=== PATIENT | female | born 1995 | race Caucasian/White ===

== ENCOUNTER 2025-07-15 13:50 | Emergency (ER) | payer OTHER, SELFPAY ==
--- NOTE | ~2025-07-15 | XR_ITS ---
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 Findings: No acute fracture or malalignment. No significant degenerative changes. Soft tissues unremarkable. Impression: No acute fracture or malalignment. Reviewed, dictated and finalized at location P. CULTURE TECHNICIAN Impression: No acute fracture or malalignment.
[2025-07-15 13:55] VITALS: BP 125/72; PULSE 113; RESP 18; TEMP 37.2; O2SAT 99
--- NOTE | 2025-07-15 14:11 | ED_ITS ---
HPI - Extremity Problem General Chief complaint: Extremity Problem,Nontraumatic Stated complaint: Left Knee Pain Time Seen by Provider: 07/15/25 14:07 Source: patient, RN notes reviewed and old records reviewed Mode of arrival: ambulatory Limitations: no limitations History of Present Illness HPI Narrative: 29 year old female who presents to express care with complaints of pain to her left knee posterior and lateral aspect of her knee with pain radiating down leg with no known injury. Patient does have limping gait noted but is able to have full weight bearing to her left knee. Patient reports that she was diagnosed with [place] Ch[place] in 2016 and she previous lived in [place] and now lives in [place] and sees Dr De La Rosa for her neurologist.Patient reports that she awoke yesterday with her discomfort and it was hard to straighten her leg. She reports that she has taken Tylenol arthritis, warm bath and has used Lidocaine patch to her knee without relief. MD Complaint: other (left knee pain) Onset (ago): day(s) (2) Location: knee Severity scale (1-10): 6 Related Data Home Medications ?Medication ?Instructions ?Recorded ?Confirmed ?Last Taken ?Type buspirone .ROUTE 07/15/25 Unknown His tory trazodone 50 mg tablet mg 07/15/25 Unknown History venlafaxine 75 mg capsule,extended mg PO 07/15/25 Unk nown History release 24 hr Allergies Allergy/AdvReac Type Severity Reaction Status Date / Time No Known Allergies Allergy Verified 07/15/25 14:04 Review of Systems Review of Systems: CONSTITUTIONAL: Denies fever, chills, or sweats. EYES: Denies visual changes, redness, or discharge. ENT: Denies rhinorrhea, congestion, sore throat, or otalgia. CARDIOVASCULAR: Denies chest pain, palpitations, or edema. RESPIRATORY: Denies cough or dyspnea. GASTROINTESTINAL: Denies abdominal pain, nausea, vomiting, or diarrhea. GENITOURINARY: Denies dysuria or hematuria. SKIN: Denies rash or itching. MUSCULOSKELETAL: Denies back pain,positive for left knee pain lateral and posterior aspect of knee, or myalgia. NEUROLOGIC: Denies headache, numbness, or weakness. PSYCHIATRIC: Denies anxiety or depression. All systems reviewed & are unremarkable except as noted in HPI and below PMFSH Past Medical History Medical History (Updated 07/17/25 @ 08:03 by Vilma Damon APRN) ADHD (attention deficit hyperactivity disorder) Anxiety and depression Kim chorea Surgical History Surgical History (Updated 07/17/25 @ 08:03 by Vilma Damon APRN) History of tonsillectomy and adenoidectomy Social History Social History (Updated 07/17/25 @ 08:06 by Vilma Damon APRN) Smoking status: Current every day smoker Tobacco type: e-cigarettes/vaping Alcohol intake: current Alcohol use details: social Substance use type: does not use Gender identity (if verbalized by the patient): Female Comments At time of signature, agree with nursing past medical, surgical, social and family history. There is no relevant family history pertinent to the presenting complaint Exam Narrative: GENERAL: Well-appearing, well-nourished, and in no acute distress. HEAD: Normocephalic, atraumatic. EYES: PERRLA and EOMI. ENT: Nares clear, no rhinorrhea or epistaxis. Mucous membranes moist. NECK: Supple.no lymphadenopathy CHEST: Clear to auscultation. No respiratory distress.no cough noted SAO2 99% on room air HEART: Regular rate and rhythm. No murmur heard. Normal peripheral pulses. ABDOMEN: Soft, nontender, nondistended, normal active bowel sounds. EXTREMITIES: Normal range of motion. No edema.Pain reported to posterior and lateral left knee with ROM intact but with discomfort, denies any tingling or numbness to left leg, pedal pulse present of strong quality to left leg SKIN: Warm, dry, no rash. NEURO: No focal deficits. Alert and oriented x3. Course Course Emergency Course: Patient is aware of diagnosis, understands and agrees to treatment plan.? Anticipatory guidance given.? Patient agrees to follow-up as directed and is aware of reasons to seek care at the emergency department. Portions of this record may have been created with voice recognition software Level of Care: Express Care Visit Vital Signs Vital signs: Vital Signs Temperature 37.2 C 07/15/25 13:55 Pulse Rate 113 H 07/15/25 13:55 Respiratory Rate 18 07/15/25 13:55 Blood Pressure 125/72 07/15/25 13:55 Pulse Oximetry 99 07/15/25 13:55 Oxygen Delivery Room Air 07/15/25 13:55 Temperature 37.2 C 07/15/25 13:55 Pulse Rate 113 H 07/15/25 13:55 Respiratory Rate 18 07/15/25 13:55 Blood Pressure 125/72 07/15/25 13:55 Pulse Oximetry 99 07/15/25 13:55 Oxygen Delivery Room Air 07/15/25 13:55 Reviewed MDM - Extremity (Nontraumatic) Differential Diagnosis Differential diagnosis: Likely other (left knee pain, muscle strain left knee, internal knee derangement, arthritis) Medical Records Attestation: I reviewed the patient's medical records. Imaging Data Attestation: I personally reviewed and interpreted this imaging study as follows: My impression: no acute fracture or malalignment, no soft tissue swelling Radiologist's impression: [place] [id number] XRay Report Signed Patient: Ana Mace : 1995 MR#: [id number] Age: 29 Acct:[id number] Loc: [facility] ADM Date: 07/15/[address]: Ordering Physician: Vilma Damon APRN Date of Service: 07/15/25 Procedure(s): XR knee LT 3V Accession Number(s): [id number] cc: Vilma Damon APRN~ EXAMINATION: XR knee LT 3V, 07/15/2025 14:20 [employer] HISTORY: pain to lateral and posterior knee,NKI COMPARISON: No comparisons available. Findings: No acute fracture or malalignment. No significant degenerative changes. Soft tissues unremarkable. Impression: No acute fracture or malalignment. Reviewed, dictated and finalized at location [facility] [employer] Please be advised this is a medical document. It is intended for [id number] communication. It is written in medical language and may contain unfamiliar abbreviations or verbiage. Medical documents are intended to carry relevant information, facts as evident, and the clinical opinion of the practitioner at the time of the encounter. This report may have been done utilizing a voice recognition system. Attempts have been made to correct errors. However, there may be uncorrected grammatical, spelling, and recognition errors present. The file time of this note does not necessarily represent the time of service. Dictated By: Alfred Canchola MD 07/15/25 1430 Signed By: <Electronically signed by Alfred Canchola MD in OV> Critical Care Time Critical Care Time Critical Care Time: No Discharge Plan Discharge Clinical Impression: Knee pain, left Patient Disposition: Home Condition: Stable Instructions: Antibiotic Form, Muscle Strain (ED) Additional Instructions: Tylenol for lesser pain Ibuprofen regularly for the next 2-3 days for the inflammation may use neoprene sleeve to left knee for support and comfort measures Follow-up with orthopedic surgeon if no improvement Follow-up with PCP if further problems or concerns Ice to the area 20-30 minutes 4-6 times a day Elevate above heart If your symptoms persist, change or worsen significantly before you can contact your personal physician then please, without delay, go to the emergency department for further evaluation. Follow-up with PCP in 7-10 days or sooner if needed Patient Language: German Prescriptions: No Action venlafaxine 75 mg capsule,extended release 24hr PO trazodone 50 mg tablet buspirone .ROUTE Follow-up/Referrals: PHYSICIAN NOT ON STAFF,NONSTAFF [Primary Care Provider] Time of Disposition: 14:41 Quality [place] Coma Scale Eyes: Open Verbal: Oriented and Alert Motor: Follows Commands [place] Coma Total Score: 15
--- OUTSIDE RECORDS SUMMARY | 2025-07-15 14:55 | XMS_ITS | Clinical Summary ---
Author Organization [facility] Address [address] [place] [address] Phone Care Team Providers Care Director Risk Name Role Phone Jacob Hinton MD Unavailable Magdy De La Rosa MD Unavailable [phone] Autumn Crawford DO Primary Care Provider [phone] Allergies Active Allergy Reactions Criticality Noted Date Comments Other-Environmental Allergen (Not Found In Search) Unknown 04/30/2024 Band-aid adhesive Medications levonorgestrel (Mirena, 52 MG,) 20 MCG/DAY IUD 1 Intra Uterine Device by Intrauterine route once. Active traZODone (DESYREL) 50 MG Tablet Take 50 mg by mouth nightly. Active venlafaxine (EFFEXOR) 75 MG Tablet Take 75 mg by mouth nightly. Active busPIRone (BUSPAR) 5 MG Tablet 5 Active methylPREDNISol one (MEDROL DOSPACK) 4 MG Tablet Therapy Pack See product package insert for dosing schedule 21 Tablet 5 Active Active Problems Problem Noted Date Diagnosed Date GREYSON (obstructive sleep apnea) 05/27/2024 Encounters Date Type Department Care Team Description 06/05/2025 5:49 PM CDT - 06/06/2025 2:54 AM CDT Emergency [facility] [address] [place] [address] Panchito Hart MD Pleurisy Discharge Disposition: Discharged to home or Selfcare 06/05/2025 Travel 06/04/2025 Results Follow-Up [facility] Neurology [facility] [address] [place] [address] Magdy De La Rosa MD [facility] 05/29/2025 Travel 04/28/2025 2:45 PM CDT Office Visit [facility] Neurology [facility] [address] [place] [address] Magdy De La Rosa MD Dale's disease (HCC) (Primary Dx) Discharge Disposition: Discharged to home or Selfcare 04/27/2025 Travel from Last 3 Months Family History Medical History Relation Name Comments Diabetes Father Hypertension Father Cancer Maternal Grandmother jenifer Mother Cancer Paternal Grandmother Relation Name Status Comments Father Alive Maternal Grandmother Mother Paternal Grandmother Social History Tobacco Use Types Packs/Day Years Used Date Smoking Tobacco: Every Day Cigarettes Smokeless Tobacco: Never Tobacco Cessation:Ready to Q uit: No; Counseling Given: Yes Alcohol Use Standard Drinks/Week Comments Yes 0 (1 standard drink = 0.6 oz pur e alcohol) Comments No Sex and Gender Information Value Date Recorded Sex Assigned at Female 10/21/2024 10:28 AM [employer] Legal Sex Female 11:51 PM CDT Gender Identity Other 10/21/2024 10:28 AM [employer] Sexual Orientation Something else 10/21/2024 10 :28 AM [employer] Last Filed Vital Signs Vital Sign Reading Time Taken Comments Blood Pressure 115/78 06/06/2025 2:45 AM CDT Pulse 92 06/06/2025 2:53 AM CDT Temperature 36.9 C (98.4 F) 06/05/2025 5:50 PM CDT Respiratory Rate 18 06/06/2025 2:53 AM CDT Oxygen Saturation 98% 06/06/2025 2:53 AM CDT Inhaled Oxygen Concentration - - Weight 77.1 kg (170 lb) 06/05/2025 5:50 PM CDT Height 154.9 cm (5' 1) 06/05/2025 5:50 PM CDT Body Mass Index 32.12 06/05/2025 5:50 PM CDT Plan of Treatment Upcoming Encounters Date Type Department Care Team (Late st Contact Info) Description 08/03/2025 2:45 PM [employer] Office Visit [facility] - [facility] [address] [place] [address] Magdy De La Rosa MD [address] [place] [address] Health Maintenance Due Date Last Done Comments Hepatitis C Virus (HCV) Screening 1996 TdaP Immunization 1996 Hepatitis B Immunization (1 of 3 - 19+ 3-dose series) 2015 Pneumococcal Immunization Combined (1 of 2 - PCV) 2015 Pap Smear 2017 Medicare Initial AWV G0438 03/03/2023 Human Papillomavirus (HPV) Immunization (1 - 3-dose SCDM series) 2023 SARS-COV-2 Immunization (3 - season) 2025 05/12/2021, 04/06/2021 Respiratory Syncytial Virus (RSV) Immunization (Adult) (1 - 1-dose 75+ series) 2071 Influenza Immunization Completed , 06/26/2018, 07/28/2016, Additional history exists Meningococcal Immunization (ACWY) Aged Out No longer eligible based on patient's age to complete this topic Rotavirus Immunization Aged Out No lo nger eligible based on patient's age to complete this topic Procedures Procedure Name Priority Date/Time Associated Diagnosis Comments CT ANGIO CHEST W/WO CONTRAST WITH PP (POST PROCESSING) Stat with Interpretation 06/05/2025 11:23 PM CDT D-DIMER STAT 06/05/2025 9:[address] RENAL STONE STUDY (ABDOMEN AND PELVIS W/O CONTRAST) Stat with Interpretation 06/05/2025 8:11 PM CDT URINALYSIS REFLEX IF INDICATED BY ABNORMAL RESULTS STAT 06/05/2025 7:37 PM CDT UR TEST QUAL STAT 06/05/2025 7:37 PM CDT XR CHEST SINGLE VIEW PORTABLE STAT 06/05/2025 6:44 PM CDT CBC WITH AUTO DIFFERENTIAL STAT 06/05/2025 6:36 PM CDT CMP (COMPREHENSIVE METABOLIC PANEL) STAT 06/05/2025 6:36 PM CDT LIPASE STAT 06/05/2025 6:36 PM CDT COMPLETE BLOOD COUNT (CBC) WITH DIFF STAT 06/05/2025 6:36 PM CDT RSV,SARS-COV-2,INF LUENZA A&B BY PCR STAT 06/05/2025 5:[address] - ABDOMEN/PELVIS 06/05/2025 12:00 AM CDT CTA GENERIC 06/05/2025 12:00 AM CDT [facility] 05/29/2025 11:53 AM CDT Jenifer's disease (HCC) from Last 3 Months Results * CT ANGIO CHEST W/WO CONTRAST WITH PP (POST PROCESSING) (06/05/2025 11:23 PM CDT) Anatomical Region Laterality Modality vascular N/A Computed Tomogra phy 06/05/2025 11:2 3 PM CDT Impressions 06/06/2025 6:45 AM CDT IMPRESSION: 1. No pulmonary embolus identified. 2. Multiple abnormalities as above. The preliminary report and any related communication were provided by [facility] After Hours service, as documented in the medical record. Narrative 06/06/2025 6:45 AM CDT DICTATING PHYSICIAN: Simone Engle EXAM: CT CHEST ANGIOGRAPHY WITH CONTRAST AND 3-D POSTPROCESSING EXAM DATE: 06/05/2025 11:23 PM COMPARISON: None. CLINICAL HISTORY: STAT WITH INTERPRETATION CTA ordered for PE. Ordering clinician listed reason for examination Pulmonary embolism (PE) suspected, high prob, c/o middle back pain and nonproductive cough x 2 days. HX: Smoker, Jenifer's chorea REFERRING PROVIDER: PANCHITO HART FINDINGS: Intravenous contrast administered. MIP 3-D postprocessed images provided under concurrent supervision. CT dose reduction techniques used. Exam performed using one or more of the following dose reduction techniques: Automated exposure control, adjustment of the mA and/or kV according to patient size, and/or use of iterative reconstruction. Lungs: Motion artifact. Findings of pulmonary interstitial edema. Multiple nodules and consolidations in the basilar lower lobes. Correlate for superimposed pneumonia. Follow-up to document resolution. Pleurae: No effusion. Mediastinum: No adenopathy. Anterior mediastinal soft tissue suggestive of incomplete thymic gland involution. Thyroid Gland: No nodule identified. Thoracic Aorta: No aneurysm. Pulmonary Arteries: Motion artifact. No central, lobar, segmental, or definite subsegmental filling defect. Esophagus: Unremarkable. Heart: Normal size. No pericardial effusion. Chest Wall: No axillary adenopathy. Abdomen: Nonspecific hyperattenuating mass in the right hepatic lobe on image 323 possibly hemangioma. Correlate with liver protocol MR or CT to better characterize. No comparison imaging. Skeleton: No suspicious bone lesion identified. Procedure Note Simone Engle MD - 06/06/2025 DICTATING PHYSICIAN: Simone Engle EXAM: CT CHEST ANGIOGRAPHY WITH CONTRAST AND 3-D POSTPROCESSING EXAM DATE: 06/05/2025 11:23 PM COMPARISON: None. CLINICAL HISTORY: STAT WITH INTERPRETATION CTA ordered for PE. Orderingclinician listed reason for examination Pulmonary embolism (PE)suspected, high prob, c/o middle back pain and nonproductive cough x 2days. HX: Smoker, Dale's chorea REFERRING PROVIDER: PANCHITO HART FINDINGS: Intravenous contrast administered. MIP 3-D postprocessedimages provided under concurrent supervision. CT dose reductiontechniques used. Exam performed using one or more of the following dosereduction techniques: Automated exposure control, adjustment of the mAand/or kV according to patient size, and/or use of iterativereconstruction. Lungs: Motion artifact. Findings of pulmonary interstitial edema.Multiple nodules and consolidations in the basilar lower lobes. Correlatefor superimposed pneumonia. Follow-up to document resolution. Pleurae: No effusion. Mediastinum: No adenopathy. Anterior mediastinal soft tissue suggestiveof incomplete thymic gland involution. Thyroid Gland: No nodule identified. Thoracic Aorta: No aneurysm. Pulmonary Arteries: Motion artifact. No central, lobar, segmental, ordefinite subsegmental filling defect. Esophagus: Unremarkable. Heart: Normal size. No pericardial effusion. Chest Wall: No axillary adenopathy. Abdomen: Nonspecific hyperattenuating mass in the right hepatic lobe onimage 323 possibly hemangioma. Correlate with liver protocol MR or CT tobetter characterize. No comparison imaging. Skeleton: No suspicious bone lesion identified. IMPRESSION: 1. No pulmonary embolus identified. 2. Multiple abnormalities as above. The preliminary report and any related communication were provided by[facility] After Hours service, as documented in the medical record. Panchito Hart MD IMG CT ORDERABLES Final Result * (ABNORMAL) D-DIMER [id number] (06/05/2025 9:07 PM CDT) D DIMER 3.91(H) <0.50 mcg/mL FEU 06/05/2025 9:50 PM CDT [facility] Blood Venipuncture / Unknown 06/05/2025 9:07 PM CDT 06/05/2025 9:28 PM CDT Narrative [facility] - 06/05/2025 9:50 PM CDT The FDA has approved this method to exclude the diagnosis of DVT and/or PE at the cutoff value of <0.50 mcg/mL FEU. Panchito Hart MD HEMATOLOGY ORDERABLES F inal Result [facility] [address] [place] [address] * CT RENAL STONE STUDY (ABDOMEN AND PELVIS W/O CONTRAST) (06/05/2025 8:11 PM CDT) Anatomical Region Laterality Modality Abdomen N/A Computed Tomogra phy 06/05/2025 8:11 PM CDT Impressions 06/05/2025 9:15 PM CDT IMPRESSION: 1. No renal or ureteral calculus. No acute abnormality in the abdomen or pelvis. 2. Partially visualized pleural-based circumscribed opacities in the lower lobes bilaterally, greater on the right. Differential is broad and findings could be due to aspiration, infection, ischemia among other etiologies. Would recommend clinical correlation for further characterization as well as further evaluation with CT chest with contrast given the rounded appearance. 3. Other chronic findings as above. The preliminary report and any related communication were provided by [facility] After Hours service, as documented in the medical record. Narrative 06/05/2025 9:15 PM CDT DICTATING PHYSICIAN: Atilio Santana D.O. DATE: 06/05/2025 8:11 PM EXAM: CT RENAL STONE STUDY (ABDOMEN AND PELVIS W/O CONTRAST) COMPARISON: None. CLINICAL HISTORY: Flank pain, kidney stone suspected, Bilat lower back/flank pain since sunday. Rt side worse. FINDINGS: Unenhanced CT of the abdomen and pelvis obtained using renal calculus protocol. Low-dose protocol utilized. Suboptimal evaluation of the solid organs, vasculature and bowel due to lack of IV and oral contrast. Radiation dose reduction technique(s) were used. Radiation dose reduction techniques were employed. CTDIvol: 8.9 mGy. DLP: 481 mGy-cm. ABDOMEN: Liver: Normal size and homogeneous density. Gallbladder: Tiny calcified gallstones versus biliary sludge. Consider ultrasound. Spleen: Normal size and homogeneous density. Adrenals: No mass. Pancreas: No peripancreatic fat stranding. Aorta/IVC: Normal size. Kidneys/Ureters/Bladder: No obstructing renal or ureteral calculus. No exophytic mass or hydronephrosis. Cortical scarring in the upper pole of the left kidney could be chronic sequela of prior infection PELVIS: Reproductive organs: No pelvic mass. Intrauterine device within the uterus. Simple appearing cyst in the right ovary measuring up to 3.7 cm probable physiologic cyst or follicle the left ovary measuring 1.9 cm. No follow-up is necessary based on their sizes and the patient's age. Bowel: No dilation. The appendix is not definitely demonstrated however there are no inflammatory changes in the expected location of the appendix. Mesentery: No adenopathy. Peritoneum: No free fluid. Lower chest: Partially visualized pleural-based circumscribed opacities in the lower lobes bilaterally, greater on the right. Left lower lobe solid nodule measuring 5 mm (series 301, image 19). Bones/Body wall: No destructive lesion. No significant abnormality. . Procedure Note Atilio Santana, DO - 06/05/2025 DICTATING PHYSICIAN: Atilio Santana D.O. DATE: 06/05/2025 8:11 PM EXAM: CT RENAL STONE STUDY (ABDOMEN AND PELVIS W/O CONTRAST) COMPARISON: None. CLINICAL HISTORY: Flank pain, kidney stone suspected, Bilat lowerback/flank pain since sunday. Rt side worse. FINDINGS: Unenhanced CT of the abdomen and pelvis obtained using renalcalculus protocol. Low-dose protocol utilized. Suboptimal evaluation ofthe solid organs, vasculature and bowel due to lack of IV and oralcontrast. Radiation dose reduction technique(s) were used. Radiation dosereduction techniques were employed. CTDIvol: 8.9 mGy. DLP: 481 mGy-cm. ABDOMEN: Liver: Normal size and homogeneous density. Gallbladder: Tiny calcified gallstones versus biliary sludge. Considerultrasound. Spleen: Normal size and homogeneous density. Adrenals: No mass. Pancreas: No peripancreatic fat stranding. Aorta/IVC: Normal size. Kidneys/Ureters/Bladder: No obstructing renal or ureteral calculus. Noexophytic mass or hydronephrosis. Cortical scarring in the upper pole ofthe left kidney could be chronic sequela of prior infection PELVIS: Reproductive organs: No pelvic mass. Intrauterine device within theuterus. Simple appearing cyst in the right ovary measuring up to 3.7 cmprobable physiologic cyst or follicle the left ovary measuring 1.9 cm. Nofollow-up is necessary based on their sizes and the patient's age. Bowel: No dilation. The appendix is not definitely demonstrated howeverthere are no inflammatory changes in the expected location of theappendix. Mesentery: No adenopathy. Peritoneum: No free fluid. Lower chest: Partially visualized pleural-based circumscribed opacities inthe lower lobes bilaterally, greater on the right. Left lower lobe solidnodule measuring 5 mm (series 301, image 19). Bones/Body wall: No destructive lesion. No significant abnormality. . IMPRESSION: 1. No renal or ureteral calculus. No acute abnormality in the abdomen orpelvis. 2. Partially visualized pleural-based circumscribed opacities in the lowerlobes bilaterally, greater on the right. Differential is broad andfindings could be due to aspiration, infection, ischemia among otheretiologies. Would recommend clinical correlation for furthercharacterization as well as further evaluation with CT chest with contrastgiven the rounded appearance. 3. Other chronic findings as above. The preliminary report and any related communication were provided [facility] After Hours [facility], as documented in the medical record. Panchito Hart MD IMG CT ORDERABLES Final Result * (ABNORMAL) Urinalysis Reflex if Indicated by Abnormal Results (06/05/2025 7:37 PM CDT) SPECIFIC GRAVITY 1.020 1.003 - 1.030 06/05/2025 8:08 PM CDT [facility] URINE PH 6.0 5.0 - 9.0 06/05/2025 8:08 PM CDT [facility] WBC ESTERASE Negative Negative 06/05/2025 8:08 PM CDT [facility] NITRITE Negative Negative 06/05/2025 8:08 PM CDT [facility] PROTEIN, RANDOM URINE 30 mg/dL(A) Negative 06/05/2025 8:08 PM CDT [facility] URINE GLUCOSE, QUAL Negative Negative 06/05/2025 8:08 PM CDT [facility] URINE KETONES Negative Negative 06/05/2025 8:08 PM CDT [facility] UROBILINOGEN Normal Normal mg/dL 06/05/2025 8:08 PM CDT [facility] URINE BLOOD Negative Negative parker/ul 06/05/2025 8:08 PM CDT [facility] URINALYSIS COLOR Yellow 06/05/20 25 8:08 PM CDT [facility] URINALYSIS CLARITY Clear 06/05/2025 8:08 PM CDT [facility] WBC (Urine) 0-5 Negative, 0-5 /hpf 06/05/2025 8:08 PM CDT [facility] URINE RBC'S 0-2 Negative, 0-2 /hpf 06/05/2025 8:08 PM CDT [facility] EPITHELIAL CELLS Occasional /lpf 06/05/20 25 8:08 PM CDT [facility] BACTERIA, URINE Few(A) Negative /hpf 06/05/2025 8:08 PM CDT [facility] Urine URINE SPECIMEN / Unknown Non-Phlebotomy Collection / Unknown 06/05/2025 7:37 PM CDT 06/05/2025 7:45 PM CDT Panchito Hart MD URINE ORDERABLES Final Result [facility] [address] [place] [address] * Urine Test Qualitative (06/05/2025 7:37 PM CDT) PREG TEST,MONOCLONA L Negative 06/05/2025 7:56 PM CDT [facility] Urine Non-Phlebotomy Collection / Unknown 06/05/2025 7:37 PM CDT 06/05/2025 7:45 PM CDT Panchito Hart MD URINE ORDERABLES Final Result [facility] [address] [place] [address] * XR CHEST SINGLE VIEW PORTABLE (06/05/2025 6:44 PM CDT) Anatomical Region Laterality Modality Chest N/A Digital Radiogra phy 06/05/2025 6:44 PM CDT Impressions 06/06/2025 8:22 AM CDT IMPRESSION: 1. No acute cardiopulmonary abnormality. Narrative 06/06/2025 8:22 AM CDT DICTATING PHYSICIAN: Maged Potter M.D. EXAM: Chest Radiographs, 06/05/2025 6:44 PM HISTORY: 29-year-old female with cough. Current smoker. History of sleep apnea. COMPARISON: None. FINDINGS: Single upright AP portable view(s) of the chest. Cardiac silhouette and mediastinum: Normal in size and contour when accounting for AP technique. Pulmonary vessels and tim: Unremarkable. Lungs: No consolidation or focal nodular opacities. Pleura: No effusion or pneumothorax. Chest wall and Bones: Unremarkable. Abdomen: Visualized upper abdomen is unremarkable. Procedure Note Maged Potter MD - 06/06/2025 DICTATING PHYSICIAN: Maged Pottre M.D. EXAM: Chest Radiographs, 06/05/2025 6:44 PM HISTORY: 29-year-old female with cough. Current smoker. History of sleepapnea. COMPARISON: None. FINDINGS: Single upright AP portable view(s) of the chest. Cardiac silhouette and mediastinum: Normal in size and contour whenaccounting for AP technique. Pulmonary vessels and tim: Unremarkable. Lungs: No consolidation or focal nodular opacities. Pleura: No effusion or pneumothorax. Chest wall and Bones: Unremarkable. Abdomen: Visualized upper abdomen is unremarkable. IMPRESSION: 1. No acute cardiopulmonary abnormality. Panchito Hart MD [facility] DIAGNOSTIC ORDERABL ES Final Result * (ABNORMAL) CBC with Auto Differential (06/05/2025 6:36 PM CDT) WBC 10.20 4.00 - 12.00 10(3)/mcL 06/05/2025 7:21 PM CDT [facility] RBC 4.11 3.80 - 5.30 10(6)/mcL 06/05/2025 7:21 PM CDT [facility] HEMOGLOBIN (HGB) 11.0(L) 12.0 - 16.5 g/dL 06/05/2025 7:21 PM CDT [facility] HEMATOCRIT (HCT) 34.9(L) 38.0 - 47.0 % 06/05/2025 7:21 PM CDT [facility] MCV 84.9 82.0 - 96.0 fL 06/05/2025 7:21 PM CDT [facility] MCH 26.8 26.0 - 34.0 pg 06/05/2025 7:21 PM CDT [facility] MCHC 31.5 31.0 - 36.0 g/dL 06/05/2025 7:21 PM CDT [facility] PLATELET COUNT 212 140 - 440 10(3)/mcL 06/05/2025 7:21 PM CDT [facility] RDW 13.3 11.8 - 15.5 % 06/05/2025 7:21 PM CDT [facility] MPV 12.3 9.7 - 12.4 fL 06/05/2025 7:21 PM CDT [facility] NEUTROPHILS 72.6 47.0 - 73.0 % 06/05/2025 7:21 PM CDT [facility] LYMPHOCYTES 15.1(L) 18.0 - 42.0 % 06/05/2025 7:21 PM CDT [facility] MONOCYTES 10.2 4.0 - 12.0 % 06/05/2025 7:21 PM CDT [facility] EOSINOPHILS 1.0 0.0 - 5.0 % 06/05/2025 7:21 PM CDT [facility] BASOPHILS 0.7 0.0 - 1.0 % 06/05/2025 7:21 PM CDT [facility] IMMATURE GRANULOCYTE 0.4 0.0 - 0.4 % 06/05/2025 7:21 PM CDT [facility] ABSOLUTE NEUTROPHILS 7.41 1.60 - 7.70 10(3)/mcL 06/05/2025 7:21 PM CDT [facility] ABSOLUTE LYMPHOCYTES 1.54 1.30 - 3.20 10(3)/mcL 06/05/2025 7:21 PM CDT [facility] ABSOLUTE MONOCYTES 1.04(H) 0.20 - 1.00 10(3)/mcL 06/05/2025 7:21 PM CDT [facility] ABSOLUTE EOSINOPHIL 0.10 0.00 - 0.40 10(3)/mcL 06/05/2025 7:21 PM CDT [facility] ABSOLUTE BASOPHILS 0.07 0.00 - 0.10 10(3)/mcL 06/05/2025 7:21 PM CDT [facility] ABSOLUTE IMMATURE GRANULOCYTE 0.04(H) 0.00 - 0.03 10 (3) mcL. 06/05/2025 7:21 PM CDT [facility] NRBC PER 100 WBC 0 06/05/20 7:21 PM CDT [facility] Blood Venipuncture / Unknown 06/05/2025 6:36 PM CDT 06/05/2025 7:18 PM CDT us Panchito Hart MD HEMATOLOGY ORDERABLES F inal Result [facility] [address] [place] [address] * Lipase (06/05/2025 6:36 PM CDT) LIPASE 49 8 - 78 U/L 06/05/2025 7:41 PM CDT [facility] Blood Venipuncture / Unknown 06/05/2025 6:36 PM CDT 06/05/2025 7:18 PM CDT Panchito Hart MD CHEMISTRY ORDERABLES Fi nal Result [facility] [address] [place] [address] * (ABNORMAL) Comprehensive Metabolic Panel (CMP) (06/05/2025 6:36 PM CDT) SODIUM 140 136 - 145 mmol/L 06/05/2025 7:41 PM CDT [facility] POTASSIUM 3.5 3.5 - 5.1 mmol/L 06/05/2025 7:41 PM CDT [facility] CHLORIDE 103 98 - 107 mmol/L 06/05/2025 7:41 PM CDT [facility] CO2, VENOUS 27 22 - 30 mmol/L 06/05/2025 7:41 PM CDT [facility] ANION GAP 13.5 <18.0 mmol/L 06/05/2025 7:41 PM CDT [facility] GLUCOSE 103(H) 70 - 99 mg/dL 06/05/2025 7:41 PM CDT [facility] BUN 20(H) 5 - 18 mg/dL 06/05/2025 7:41 PM CDT [facility] CREATININE, BLOOD 0.86 0.60 - 1.00 mg/dL 06/05/2025 7:41 PM CDT [facility] BUN/CREATININE RATIO 23(H) 12 - 20 ratio 06/05/2025 7:41 PM CDT [facility] TOTAL PROTEIN 7.5 6.0 - 8.0 g/dL 06/05/2025 7:41 PM CDT [facility] ALBUMIN 4.1 3.5 - 5.0 g/dL 06/05/2025 7:41 PM CDT [facility] A/G RATIO 1.2 1.0 - 2.2 06/05/2025 7:41 PM CDT [facility] CALCIUM 9.3 8.7 - 10.5 mg/dL 06/05/2025 7:41 PM CDT [facility] T BILI 0.5 0.2 - 1.2 mg/dL 06/05/2025 7:41 PM CDT [facility] SGOT (AST) 28 <43 U/L 06/05/2025 7:41 PM CDT [facility] SGPT (ALT) 22 <56 U/L 06/05/2025 7:41 PM CDT [facility] ALKALINE PHOSPHATASE 54 40 - 150 U/L 06/05/2025 7:41 PM CDT [facility] GFR, ESTIMATED >60 >=60 06/05/2025 7:41 PM CDT [facility] Comment: Creatinine Clearance is the preferred criteria for selecting drug dose adjustments in renally impaired patients. The GFR is provided as additional pertinent clinical information. GFR is reported in mL/min/1.73 sq m. Calculation based on the 2020 Chronic Kidney Disease Epidemiology Collaboration (CKD-EPI) equation refit without adjustment for race. GFR, EST. >60 >=60 7:41 PM CDT [facility] Comment: Creatinine Clearance is the preferred criteria for selecting drug dose adjustments in renally impaired patients. The GFR is provided as additional pertinent clinical information. GFR is reported in mL/min/1.73 sq m. Calculation based on the 2009 Chronic Kidney Disease Epidemiology Collaboration (CKD-EPI). GFR, EST. NONAFRICAN >60 >=60 06/05/2025 7:41 PM CDT [facility] Comment: Creatinine Clearance is the preferred criteria for selecting drug dose adjustments in renally impaired patients. The GFR is provided as additional pertinent clinical information. GFR is reported in mL/min/1.73 sq m. Calculation based on the 2009 Chronic Kidney Disease Epidemiology Collaboration (CKD-EPI). Blood Venipuncture / Unknown 06/05/2025 6:36 PM CDT 06/05/2025 7:18 PM CDT us Panchito Hart MD CHEMISTRY ORDERABLES Fi nal Result [facility] [place] [address] * RSV,SARS-COV-2,INFLUENZA A&B BY PCR (06/05/2025 5:51 PM CDT) FLU A Negative Negative, Error 06/05/2025 6:48 PM CDT [facility] FLU B Negative Negative 06/05/2025 6:48 PM CDT [facility] RESP SYNC VIRUS Negative Negative 6:48 PM CDT [facility] SARSCOV2 NOT DETECTED (Reference Range for this test is Not Detected) 06/05/2025 6:48 PM CDT [facility] Comment:This test was perfor med by a Reverse Account Associate PCR Method. Nasal NASOPHARYNGEAL SWAB / Unknown Non-Phlebotomy Collection / Unknown 06/05/2025 5:51 PM CDT 06/05/2025 6:09 PM CDT Yoana Rhodes MD MICROBIOLOGY - GENERAL O RDERABLES Final Result Performing Organization Address City/[facility]/ZIP Co de Phone Number [facility] [place] [address] * CT - ABDOMEN/PELVIS (06/05/2025 12:00 AM CDT) 06/05/[address] ORDERABLES Final Result SCAN * CTA MISCELLANEOUS (06/05/2025 12:00 AM CDT) 06/05/2025 us Provider Scan IMG CT ORDERABLES Final Result SCAN * JENIFER DISEASE, MATIAS HAD (05/29/2025 11:53 AM CDT) RESULT SUMMARY FULL MUTATION IDENTIFIED 06/03/2025 2:13 PM CDT [facility] RESULT CAG repeat: 40 (Full penetrance) and 19 06/03/2025 2:13 PM CDT [facility] INTERPRETATION SEE NOTE 025 2:13 PM CDT [employer] Comment: 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 Identification of a mutation has important implications for family members. Testing of at risk individuals is possible, but it is recommended that predictive testing be performed in conjunction with appropriate pre- and post-test counseling. A genetic consultation may be of benefit. ADDITIONAL INFORMATION A PCR-based assay was utilized to detect CAG repeat expansions in exon 1 of the HTT gene. We estimate that the number of CAG repeats is correct within +/-5%. Normal: <27 Intermediate: 27-35 Reduced penetrance: 36-39 Full penetrance: >39 An online research opportunity called [employer] ([employer]), a project of [employer], is available for the recipient of this genetic test. This patient registry collects de-identified genetic and health information to advance the knowledge of genetic variants. [facility] is a collaborator of [employer] This may not be applicable for all tests. Test results should be interpreted in the context of clinical findings, family history, and other laboratory data. Misinterpretation of results may occur if the information provided is inaccurate or incomplete. Rare polymorphisms exist that could lead to false-negative or false-positive results. If results obtained do not match the clinical findings, additional testing should be considered. Bone Marrow transplants from allogenic donors will interfere with testing. Call [facility] for instructions for testing patients who have received a bone marrow transplant. One or more in silico tools were used to assist in the interpretation of these results. These tools are updated regularly and predictions for a given variant may change. Additionally, the predictability of these tools for the determination of pathogenicity is currently unvalidated. This test was developed and its performance characteristics determined by [facility] in a manner consistent with CLIA requirements. This test has not been cleared or approved by the U.S. Food and Drug Administration. HD REASON FOR REFERRAL SEE NOTE 06/03/2025 2:13 PM T 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 Test for the presence of an expansion in the HTT gene. HD SPECIMEN WB Whole Blood 06/03/2025 2:13 PM T [facility] RELEASED BY Milo Felton, Ph.D. 06/03/2025 2:13 PM [facility] Comment: Test Performed by: [address] [address] Email Marketing Manager: Lulu Lane Ph.D.; CLIA# [id number] Blood Venipuncture / Unknown 05/29/2025 11:53 AM CDT 05/29/2025 12:13 PM CDT us Magdy De La Rosa MD LAB SEND OUT GENETIC Final R esult [facility] [employer] from Last [address] [place] [address] MEDICARE C [facility] Care Teams Director Risk Relationship Specialty Start Date End Date Autumn Crawford DO [address] [place] [address] [place] [address] PCP - General Family Medicine 05/12/25 Jacob Hinton MD [address] [place] [address] Consulting Physician Pulmonary Disease 05/27/24 Magdy De La Rosa MD [address] [place] [id number] Consulting Physician Neurology 10/21/24
--- OUTSIDE RECORDS SUMMARY | 2025-07-15 14:55 | XMS_ITS | Patient Health Record ---
Author Organization [facility] Address [address] [place] [address] Care Team Providers Care Agriculture Laboratory Technician Name Role Phone Kierra Lester Primary Care Provider Alicia Pabon Unavailable [phone] Reason For Referral No Information Medications Medication SIG (Take, Route, Fr equency, Duration) Notes Start Date End Date Status Nexplanon 68 MG Subcutaneous A ctive Adderall XR 30 mg 1 capsule every morn ing Orally Once a day; Duration: 90 days Ac tive Macrobid 100 MG 1 capsule with food Orally every 12 hrs 06/11/2016 Not-Taking Advil 200 MG 1 tablet as needed O rally every 6 hrs Active Effexor Active Immunizations Vaccine Route Administration Date Status Comme nts DTaP Unknown 1996 Administered DTaP Unknown 02/16/1997 Administered DTaP Unknown 10/21/1997 Administered Hep A, Ped/Adol, 2 dose (Vaqta) Unknown 07/19/2000 Administered Hep A, Ped/Adol, 2 dose (Vaqta) Unknown 01/21/2001 Administered Hep B, Ped/Adol, (0-19 yrs) (3 dose schedule) Unknown 1996 Administered Hep B, Ped/Adol, (0-19 yrs) (3 dose schedule) Unknown 1996 Administered Hep B, Ped/Adol, (0-19 yrs) (3 dose schedule) Unknown 01/14/1997 Administered Hib (PRP-T), 4 dose schedule Unknown 02/16/1997 Administered Hib (PRP-T), 4 dose schedule Unknown 10/21/1997 Administered Hib (PRP-T), 4 dose schedule Unknown 07/19/2000 Administered HPV quadrivalent (Gardasil) IM Intramuscular 08/10/2009 Administered HPV quadrivalent (Gardasil) im 10/11/2009 Administered HPV quadrivalent (Gardasil) im 02/08/2010 Administered Menactra Unknown 04/14/2008 Administered Menactra IM Intramuscular 04/14/2013 Administered MMR Unknown 10/21/1997 Administered MMR Unknown 07/18/2001 Administered Polio/IPV Unknown 1996 Administered Polio/IPV Unknown 1996 Administered Polio/IPV Unknown 02/16/1997 Administered Polio/IPV Unknown 07/18/2001 Administered Tdap Unknown 04/14/2008 Administered Varicella Unknown 1997 Administered Varicella Unknown 04/14/2008 Administered Problems Problem Type SNOMED Code ICD Code Onset Dates Problem Status W/U Status Risk Notes 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 Plan Of Treatment Pending Test Test Name Order Date CBC WITH DIFFERENTIAL 10/04/2012 COMPREHENSIVE METABOLIC PANEL (CMP) 09/2012 [facility] GC PCR SWAB 06/29/2016 HCG, URINE SCREEN/SG 03/12/2014 CHL[facility]IA TRACHOMATIS rRNA 06/29/2016 HCG, URINE SCREEN/SG IH 12/12/2016 HCG, URINE SCREEN/SG IH 04/10/2017 Insurance Providers Payer Name Payer Address Payer Phone Subscriber Number Group Number Insured Name Patient Relationship to Insured Coverage Start Date Coverage End Date [facility] D[facility] [employer]AN HMO [address] [place] [phone] [id number] Anmol Steen Child - Insured does not have Financial Responsibility (includes legally adopted child) Medical (General) History Surgical History Surgery Date(Month/Year) tonsillectomy Hospitalization History Reason Date(Month/Year) denies
--- OUTSIDE RECORDS SUMMARY | 2025-07-15 14:55 | XMS_ITS | Clinical Summary ---
Author Organization [facility] Medical Office Building B Address [address] [place] [address] Care Team Providers Care Police Dispatcher Name Role Phone Precious Hernandez MD Primary Care Provider [phone] Clint Cardona MD Unavailable Allergies No known active allergies Medications traZODone (DESYREL) 50 mg tablet Take 1 tablet (50 mg total) by mouth nightly Active busPIRone (BUSPAR) 7.5 mg tablet Take 1 tablet (7.5 mg total) by mouth 2 (two) times a day Active venlafaxine (EFFEXOR) 100 mg tablet Take 1.5 tablets (150 mg total) by mouth nightly Active ibuprofen 200 mg tab/cap Take 1 tablet/capsule (200 mg total) by mouth every 6 (six) hours as needed for pain Active metroNIDAZOLE (FLAGYL) 500 mg tabletIndications :complicated parapneumonic effusion Take 1 tablet (500 mg total) by mouth 3 (three) times a day for 2 days 6 tablet 06/29/20 25 025 cefdinir (OMNICEF) 300 mg capsule Take 1 capsule (300 mg total) by mouth 2 (two) times a day for 7 days 14 capsule 06/30/20 25 025 Discontinu ed(Alterna te therapy) amoxicillin-clavu lanate (AUGMENTIN) 875-125 mg per tablet Take 1 tablet (875 mg of amoxicillin total) by mouth 2 (two) times a day for 7 days 14 tablet 10/28/ 025 Active Problems Problem Noted Date Diagnosed Date Parapneumonic effusion 06/25/2025 Normocytic anemia 06/23/2025 Hypoalbuminemia 06/21/2025 Right flank pain 06/21/2025 Pleural effusion 06/20/2025 Sepsis without acute organ dysfunction Resolved Problems Problem Noted Date Diagnosed Date Resolved Date Constipation 06/25/2025 06/28/2025 Tachycardia 06/21/2025 06/28/2025 Encounters Date Type Department Care Team Description 07/02/2025 [facility] Post Discharge Follow up phone call [address] [address] Loretta Encinas RN 06/30/2025 Telephone [facility] Pulmonary at [address] [place] [phone] Rupa Ramos LPN 06/30/2025 Orders Only [facility] Pulmonary at [address] [phone] Dino Sethi DO 06/19/2025 9:59 PM CDT - 06/29/2025 6:54 PM CDT Hospital Encounter [address] [address] Berto Oneill MD Holland, MD Primo Estrella, MD Yamil Suh, Brian Sumner Jr., MD Curran, Amy Santiago MD Pleural effusion (Primary Dx); Sepsis without acute organ dysfunction, due to unspecified organism (HCC); Tachycardia; Hypoalbuminemia; Normocytic anemia; Parapneumonic effusion Discharge Disposition: Discharge to home or self care 06/19/2025 8:51 PM CDT - 06/19/2025 11:59 PM CDT Hospital Encounter [facility], Room R Discharge Disposition: Discharge to home or self care 06/05/2025 6:40 PM CDT Ancillary Procedure [facility] 06/05/2025 5:34 PM CDT - 06/05/2025 11:59 PM CDT Hospital Encounter [facility], Room R Discharge Disposition: Discharge to home or self care 06/05/2025 11:15 AM CDT Ancillary Procedure [facility] from Last 3 Months Surgical History Surgery Date Site/Laterality Comments US GUIDED THORACENTESIS 06/23/2025 N/A Social History Tobacco Use Types Packs/Day Years Used Date Smoking Tobacco: Never Passive Smoke Exposure: Never Smokeless Tobacco: Never Tobacco Cessation:Counseling Given: No Alcohol Use Standard Drinks/Week Comments Yes 0 (1 standard drink = 0.6 oz pur e alcohol) Social Connection and Isolation Panel Answer Date Recorded In a typical week, how many times do you talk on the phone with family, friends, or neighbors? Three times a week 06/22/2025 How often do you get togethe r with friends or relatives? Three times a week 06/22/2025 How often do you attend chur ch or samaritan services? Never 06/22/2025 Do you belong to any clubs o r organizations such as hinduism groups, unions, fraternal or athletic groups, or school groups? No 06/22/2025 How often do you attend meet ings of the clubs or organizations you belong to? Never 06/22/2025 Are you , , di vorced, , never , or living with a partner? Never 06/22/2025 AUDIT-C Answer Date Recorded Q1: How often do you have a drink containing alc ohol? Monthly or less 06/20/2025 Q2: How many drinks containi ng alcohol do you have on a typical day when you are drinking? 1 or 2 06/20/2025 Q3: How often do you have si x or more drinks on one occasion? Less than monthly 06/20/2025 Overall Financial Resource Strain (CARDIA) Answe r Date Recorded How hard is it for you to pa y for the very basics like food, housing, medical care, and heating? Somewhat hard 06/22/2025 Hunger Vital Sign Answer Date Recorded Within the past 12 months, y ou worried that your food would run out before you got the money to buy more. Never true 06/22/20 25 Within the past 12 months, t he food you bought just didn't last and you didn't have money to get more. Never true 06/22/2025 PRAPARE - Transportation Answer Date Re corded In the past 12 months, has l ack of transportation kept you from medical appointments or from getting medications? No 06/04 In the past 12 months, has l ack of transportation kept you from meetings, work, or from getting things needed for daily living? No 06/22/2025 Housing Stability Vital Sign Answer Myke e Recorded In the last 12 months, was t here a time when you were not able to pay the mortgage or rent on time? No 06/22/2025 In the past 12 months, how m any times have you moved where you were living? 0 06/22/2025 At any time in the past 12 m [facility], were you homeless or living in a halfway (including now)? No 06/22/2025 [facility] Utilities Answer Date Recorded In the past 12 months has th e electric, gas, oil, or water company threatened to shut off services in your home? No 06/22/2025 Personal Safety Answer Date Recorded Have you ever been in or are you currently in a harmful physical or emotional relationship or is someone making you feel afraid or unsafe? Denies 06/19/2025 Comments Unknown Sex and Gender Information Value Date Recorded Sex Assigned at Not on file Legal Sex Female 11:33 AM CDT Gender Identity Not on file Sexual Orientation Not on file Last Filed Vital Signs Vital Sign Reading Time Taken Comments Blood Pressure 97/63 06/29/2025 2:35 PM CDT Pulse 109 06/29/2025 2:35 PM CDT Temperature 36.8 C (98.2 F) 06/29/2025 2:35 PM CDT Respiratory Rate 20 06/29/2025 7:24 AM CDT Oxygen Saturation 95% 06/29/2025 2:35 PM CDT Inhaled Oxygen Concentration - - Weight 79.9 kg (176 lb 2.4 oz) 06/28/2025 6:02 A M CDT Height 154.9 cm (5' 1) 06/20/2025 3:35 PM CDT Body Mass Index 33.28 06/20/2025 3:35 PM CDT Plan of Treatment Health Maintenance Due Date Last Done Comments Depression Screening 1996 Hepatitis C Screening 1996 DTaP/Tdap/Td Vaccine (1 - Tdap) 2007 Varicella Vaccines (1 of 2 - 13+ 2-dose series) 2009 Hepatitis B Screening 2014 Regular Well Visit/Exam 18-64 2014 HPV Vaccines (1 - 3-dose SCD M series) 2023 Cervical Cancer Screening 03/22/2024 03/22/2023 Covid-19 Vaccine (3 - 2024-2 6 season) 2025 05/12/2021, 04/06/2021 Influenza Vaccine (#1) 2025 8, 07/28/2016, 06/03/2015 Pneumococcal vaccine <65 Aged Out No longer eligible based on patient's age to complete this topic Procedures Procedure Name Priority Date/Time Associated Diagnosis Comments XR CHEST 1 VIEW ED Urgent/IP Urgent 06/29/2025 12:33 PM CDT XR CHEST 1 VIEW IP Routine 06/29/2025 6:08 AM CDT EGFR Routine 06/29/2025 3:43 AM CDT COMPREHENSIVE METABOLIC PANEL Routine 06/29/2025 3:43 AM CDT CBC WITHOUT DIFFERENTIAL Routine 06/29/2025 3:43 AM CDT XR CHEST 1 VIEW IP Routine 06/28/2025 6:13 AM CDT CBC WITHOUT DIFFERENTIAL Routine 06/28/2025 4:28 AM CDT XR CHEST 1 VIEW IP Routine 06/27/2025 6:27 AM CDT CBC WITHOUT DIFFERENTIAL Routine 06/27/2025 5:[address] CHEST WO CONTRAST IP Routine 06/26/2025 10:08 AM CDT XR CHEST 1 VIEW IP Routine 06/26/2025 6:22 AM CDT CBC WITHOUT DIFFERENTIAL Routine 06/26/2025 4:27 AM CDT EGFR Routine 06/25/2025 7:58 AM CDT COMPREHENSIVE METABOLIC PANEL Routine 06/25/2025 7:58 AM CDT CBC WITHOUT DIFFERENTIAL Routine 06/25/2025 7:58 AM CDT XR CHEST 1 VIEW ED Urgent/IP Urgent 06/25/2025 7:35 AM CDT CBC WITHOUT DIFFERENTIAL Routine 06/24/2025 8:22 AM CDT XR CHEST 1 VIEW IP Routine 06/24/2025 7:01 AM CDT CYTOLOGY Routine 06/24/2025 12:00 AM CDT XR CHEST 1 VIEW ED Urgent/IP Urgent 06/23/2025 5:03 PM CDT PH, PLEURAL FLUID Routine 06/23/2025 4:3 7 PM CDT XR CHEST 1 VIEW Timed 06/23/2025 1:37 PM CDT US GUIDED THORACENTESIS RIGHT IP Routine 06/23/2025 12:37 PM CDT CELL DIFFERENTIAL, BODY FLUID Routine 06/23/2025 12:23 PM CDT GLUCOSE, BODY FLUID Routine 06/23/2025 1 2:23 PM CDT PROTEIN, BODY FLUID Routine 06/23/2025 1 2:23 PM CDT LACTATE DEHYDROGENASE, BODY FLUID Routine 06/23/2025 12:23 PM CDT CELL COUNT W/REFLEX DIFFERENTIAL, BODY FLUID Routine 06/23/2025 12:23 PM CDT AEROBIC AND ANAEROBIC CULTURE AND GRAM STAIN Routine 06/23/2025 12:23 PM CDT CBC WITHOUT DIFFERENTIAL STAT 06/23/2025 9:16 AM CDT PROTIME-INR Routine 06/22/2025 5:31 AM CDT LACTATE DEHYDROGENASE Routine 06/22/2025 5:31 AM CDT URINALYSIS AND REFLEX TO MICROSCOPIC AND CULTURE Routine 06/21/2025 4:05 PM CDT EGFR Routine 06/21/2025 7:04 AM CDT DIFFERENTIAL AUTO Routine 06/21/2025 7:0 4 AM CDT COMPREHENSIVE METABOLIC PANEL Routine 06/21/2025 7:04 AM CDT CBC WITH AUTO DIFFERENTIAL Routine 06/21/2025 7:04 AM CDT PROCALCITONIN Routine 06/20/2025 8:[address] CHEST PE ABDOMEN PELVIS W CONTRAST ED 06/20/2025 2:[address] CHEST WO CONTRAST ED 06/19/2025 11:52 PM CDT BLOOD CULTURE STAT 06/19/2025 11:36 PM CDT BLOOD CULTURE STAT 06/19/2025 11:36 PM CDT XR CHEST PA LATERAL 2 VIEWS ED 06/19/2025 10:48 PM CDT EGFR STAT 06/19/2025 10:45 PM CDT DIFFERENTIAL AUTO STAT 06/19/2025 10: 45 PM CDT CRP (ACUTE PHASE) STAT 06/19/2025 10: 45 PM CDT HCG, URINE, QUALITATIVE STAT 06/19/2025 10:45 PM CDT SEPSIS LACTATE WITH REFLEX STAT 06/19/2025 10:45 PM CDT COMPREHENSIVE METABOLIC PANEL STAT 06/19/2025 10:45 PM CDT CBC WITH AUTO DIFFERENTIAL STAT 06/19/2025 10:45 PM CDT XR TRANSFER OF OUTSIDE FILMS Routine 06/05/2025 6:[address] BODY OUTSIDE REFERENCE Routine 06/05/2025 11:15 AM CDT from Last 3 Months Results * XR Chest 1 View (06/29/2025 12:33 PM CDT) Anatomical Region Laterality Modality Body, Chest N/A Computed Radiogr aphy 06/29/2025 12:4 3 PM CDT Impressions 06/29/2025 12:43 PM CDT EXAMINATION: XR CHEST 1 VIEW HISTORY: Chest tube clamped, make sure no accumulation of Air TECHNIQUE: Single radiographic view of the chest COMPARISON: Chest radiograph 06/29/2025 FINDINGS: There is a trace right pleural effusion, unchanged. Unchanged opacities in the right lung base. Left lung is clear. No pneumothorax. The right-sided pleural catheter is in place. The mediastinal contours are normal. Redemonstrated elevation of the right hemidiaphragm. No acute osseous abnormality. IMPRESSION: Right-sided chest tube is in place. Stable residual trace right pleural effusion and right basilar opacities. No evidence of pneumothorax. Electronically signed by: Terell Vera M.D. Narrative 06/29/2025 12:43 PM CDT EXAMINATION: 1 view chest radiograph Procedure Note Terell Vera MD - 06/29/2025 EXAMINATION: 1 view chest radiograph IMPRESSION: EXAMINATION: XR CHEST 1 VIEW HISTORY: Chest tube clamped, make sure no accumulation of Air TECHNIQUE: Single radiographic view of the chest COMPARISON: Chest radiograph 06/29/2025 FINDINGS: There is a trace right pleural effusion, unchanged. Unchanged opacities in the right lung base. Left lung is clear. No pneumothorax. The right-sided pleural catheter is in place. The mediastinal contours are normal. Redemonstrated elevation of the right hemidiaphragm. No acute osseous abnormality. IMPRESSION: Right-sided chest tube is in place. Stable residual trace right pleural effusion and right basilar opacities. No evidence of pneumothorax. Electronically signed by: Terell Vera M.D. Dino Sethi DO IMG XR PROCEDURES Final R esult * XR Chest 1 View (06/29/2025 6:08 AM CDT) Anatomical Region Laterality Modality Body, Chest N/A Computed Radiogr aphy 06/29/2025 6:21 AM CDT Impressions 06/29/2025 6:21 AM CDT Unchanged appearance of right base airspace opacities and chest tube. Electronically signed by: Bunny Jay M.D. Narrative 06/29/2025 6:21 AM CDT EXAMINATION: 1 view chest radiograph History: Follow-up chest tube and empyema COMPARISON: 06/28/2025 TECHNIQUE: Single view chest FINDINGS: Right base opacities and chest tube unchanged. Lungs otherwise clear. Heart size normal. Osseous structures and upper abdomen unremarkable. Procedure Note Bunny Jay MD - 06/29/2025 EXAMINATION: 1 view chest radiograph History: Follow-up chest tube and empyema COMPARISON: 06/28/2025 TECHNIQUE: Single view chest FINDINGS: Right base opacities and chest tube unchanged. Lungs otherwise clear. Heart size normal. Osseous structures and upper abdomen unremarkable. IMPRESSION: Unchanged appearance of right base airspace opacities and chest tube. Electronically signed by: Bunny Jay M.D. Clint Cardona MD IMG XR PROCEDURES Final Result * eGFR (06/29/2025 3:43 AM CDT) eGFR >90 >=60 mL/min/1. 73 m2 Comment: Interpretive Data Reference Interval Normal >/= 90 mL/min/1.73m2 Mildly decreased* 60 - 89 mL/min/1.73m2 Mildly to moderately decreased 45 - 59 mL/min/1.73m2 Moderately to severely decreased 30 - 44 mL/min/1.73m2 Severely decreased 15 - 29 mL/min/1.73m2 Kidney Failure < 15 mL/min/1.73m2 *Relative to young adult level Estimated glomerular filtration rate is determined by the 2020 CKD-EPI equation recommended by the National Kid[employer] (A Unifying Approach to GFR Estimation: Recommendations of the NKF-ASK Task Force on Reassessing the Inclusion of Race in Diagnosing Kidney Disease, JASN 2020). The CKD-EPI equation should not be used for patients with unstable renal function and has not been validated in children and those over 70. Current interpretive data was last reviewed 2021. Blood 06/29/2025 3:43 AM CDT 06/29/2025 4:33 AM CDT Brian Lobo Jr., MD LAB BLOOD ORDERABLE S Final Result [facility] Department [place] [address] * (ABNORMAL) CBC without differential (06/29/2025 3:43 AM CDT) WBC 8.50 3.80 - 9.90 K/cumm Hgb 10.1(L) 11.9 - 15.5 g/dL [facility] Hct 32.2(L) 35.6 - 45.5 % [facility] Plt 582(H) 150 - 400 K/cumm [facility] MPV 9.1 9.1 - 12.3 fL [facility] RBC 3.89(L) 3.90 - 5.20 M/cumm [facility] MCV 82.8 81.3 - 96.4 fL [facility] MCH 26.0(L) 27.1 - 33.3 pg [facility] MCHC 31.4(L) 32.3 - 35.7 g/dL [facility] RDW CV 14.5 11.1 - 14.9 % [facility] RDW SD 43.1 35.7 - 48.1 fL [facility] NRBC abs 0.00 0.00 - 0.01 K/cumm [facility] Blood 06/29/2025 3:43 AM CDT 06/29/2025 4:33 AM CDT us Amy Curran MD LAB BLOOD ORDERABLES Gabriella mosley Result [facility] Department [place] [address] * (ABNORMAL) Comprehensive metabolic panel (06/29/2025 3:43 AM CDT) Sodium 137 135 - 145 mmol/L Potassium, pl 4.5 3.3 - 4.9 mmol/L [facility] Chloride 100 97 - 110 mmol/L [facility] CO2 25 22 - 32 mmol/L [facility] Anion gap 12 2 - 15 mmol/L [facility] BUN 12 6 - 25 mg/dL [facility] Creatinine 0.84 0.60 - 1.10 mg/dL [facility] Glucose 89 70 - 199 mg/dL [facility] Comment: Interpretive Data Fasting glucose >/= 126 mg/dl is diagnostic for diabetes. Fasting is defined as no caloric intake for at least 8 hours. Fasting glucose between 100 mg/dl to 125 mg/dl is diagnostic of prediabetes. In a patient with classic symptoms of hyperglycemia or hyperglycemic crisis, a random glucose >/= 200 mg/dl is diagnostic for diabetes. In the absence of unequivocal hyperglycemia, results should be confirmed by repeat testing. The classification and Diagnosis of Diabetes Diabetes Care 2021; 46: S19-S40. Current interpretive data was last revised 2022. Calcium 9.6 8.5 - 10.3 mg/dL [facility] Bilirubin, total 0.2 0.1 - 1.2 mg/dL [facility] Protein, pl 7.8 6.5 - 8.5 g/dL [facility] Albumin 3.1(L) 3.5 - 5.0 g/dL [facility] Alk phos 89 40 - 130 Units/L [facility] ALT 13 7 - 45 Units/L [facility] AST 21 10 - 45 Units/L [facility] Blood 06/29/2025 3:43 AM CDT 06/29/2025 4:33 AM CDT us Brian Lobo Jr., MD LAB BLOOD ORDERABLE S Final Result [facility] Department [place] [address] * XR Chest 1 View (06/28/2025 6:13 AM CDT) Anatomical Region Laterality Modality Body, Chest N/A Computed Radiogr aphy 06/28/2025 6:27 AM CDT Impressions 06/28/2025 6:27 AM CDT Right chest tube and scattered right base opacities unchanged. Electronically signed by: Bunny Jay M.D. Narrative 06/28/2025 6:27 AM CDT EXAMINATION: 1 view chest radiograph History: Chest tube and empyema COMPARISON: 06/27/2025 TECHNIQUE: Single view chest FINDINGS: Scattered right base opacities unchanged. Chest tube unchanged in position. Left lung clear. Heart size normal. Osseous structures and upper abdomen unremarkable. Procedure Note Bunny Jay MD - 06/28/2025 EXAMINATION: 1 view chest radiograph History: Chest tube and empyema COMPARISON: 06/27/2025 TECHNIQUE: Single view chest FINDINGS: Scattered right base opacities unchanged. Chest tube unchanged in position. Left lung clear. Heart size normal. Osseous structures and upper abdomen unremarkable. IMPRESSION: Right chest tube and scattered right base opacities unchanged. Electronically signed by: Bunny Jay M.D. us Clint Cardona MD IMG XR PROCEDURES Final Result * (ABNORMAL) CBC without differential (06/28/2025 4:28 AM CDT) WBC 8.64 3.80 - 9.90 K/cumm Hgb 9.6(L) 11.9 - 15.5 g/dL [facility] Hct 30.6(L) 35.6 - 45.5 % [facility] Plt 488(H) 150 - 400 K/cumm [facility] MPV 9.0(L) 9.1 - 12.3 fL [facility] RBC 3.67(L) 3.90 - 5.20 M/cumm [facility] MCV 83.4 81.3 - 96.4 fL [facility] MCH 26.2(L) 27.1 - 33.3 pg [facility] MCHC 31.4(L) 32.3 - 35.7 g/dL [facility] RDW CV 14.3 11.1 - 14.9 % [facility] RDW SD 43.5 35.7 - 48.1 fL [facility] NRBC abs 0.00 0.00 - 0.01 K/cumm [facility] Blood 06/28/2025 4:28 AM CDT 06/28/2025 4:42 AM CDT us Amy Curran MD LAB BLOOD ORDERABLES Gabriella mosley Result [facility] Department [place] [address] * XR Chest 1 View (06/27/2025 6:27 AM CDT) Anatomical Region Laterality Modality Body, Chest N/A Computed Radiogr aphy 06/27/2025 6:31 AM CDT Impressions 06/27/2025 6:31 AM CDT Right chest tube and scattered right lung base opacities unchanged from previous day. Electronically signed by: Bunny Jay M.D. Narrative 06/27/2025 6:31 AM CDT EXAMINATION: 1 view chest radiograph History: Follow-up chest tube, empyema COMPARISON: 06/26/2025 TECHNIQUE: Single view chest FINDINGS: Right chest tube and right base opacities unchanged. Left lung clear. Mild cardiomegaly. Osseous structures unremarkable. Procedure Note Bunny Jay MD - 06/27/2025 EXAMINATION: 1 view chest radiograph History: Follow-up chest tube, empyema COMPARISON: 06/26/2025 TECHNIQUE: Single view chest FINDINGS: Right chest tube and right base opacities unchanged. Left lung clear. Mild cardiomegaly. Osseous structures unremarkable. IMPRESSION: Right chest tube and scattered right lung base opacities unchanged from previous day. Electronically signed by: Bunny Jay M.D. Clint Cardona MD IMG XR PROCEDURES Final Result * (ABNORMAL) CBC without differential (06/27/2025 5:05 AM CDT) WBC 10.27(H) 3.80 - 9.90 K/cumm Hgb 9.1(L) 11.9 - 15.5 g/dL [facility] Hct 29.2(L) 35.6 - 45.5 % [facility] Plt 471(H) 150 - 400 K/cumm [facility] MPV 9.3 9.1 - 12.3 fL [facility] RBC 3.56(L) 3.90 - 5.20 M/cumm [facility] MCV 82.0 81.3 - 96.4 fL [facility] MCH 25.6(L) 27.1 - 33.3 pg [facility] MCHC 31.2(L) 32.3 - 35.7 g/dL [facility] RDW CV 14.3 11.1 - 14.9 % [facility] RDW SD 42.6 35.7 - 48.1 fL [facility] NRBC abs 0.00 0.00 - 0.01 K/cumm [facility] Blood 06/27/2025 5:05 AM CDT 06/27/2025 5:15 AM CDT us Amy Curran MD LAB BLOOD ORDERABLES Gabriella mosley Result [facility] Department [place] [address] * CT Chest WO Contrast (06/26/2025 10:08 AM CDT) Anatomical Region Laterality Modality Body N/A Computed Tomogra phy 06/26/2025 5:16 PM CDT Impressions 06/26/2025 5:16 PM CDT Extensive airspace opacity right middle and right lower lobe, increased in severity compared to the prior examination may represent worsening pneumonia. Right pleural catheter in place with residual small pleural effusion and pneumothorax. Electronically signed by: Usman Tirado M.D. Narrative 06/26/2025 5:16 PM CDT EXAMINATION: CT CHEST WO CONTRAST ORDERING HEALTHCARE PROVIDER: CLINT CARDONA HISTORY: complicated parapneumonic effusion, follow up. TECHNIQUE: CT scan of the chest without intravenous contrast. Reconstructed coronal and sagittal MPR images reviewed. All images stored on PACS. Automated exposure control was used as a dose optimization technique for this examination. COMPARISON: CT chest dated 06/20/2025 FINDINGS: HEART: Normal heart size without pericardial effusion. VASCULATURE: No thoracic aortic aneurysm. MEDIASTINUM/GONZALEZ: No identified masses. No abnormal lymph nodes by size criteria. LUNGS/PLEURA: The central airways patent. Extensive airspace opacity is seen involving the right middle and right lower lobe. There is a small right pleural effusion and pneumothorax. AXILLA: No adenopathy. CHEST WALL: No masses. No soft tissue gas. HARDWARE/LINES/TUBES: A right-sided pleural catheter in satisfactory position. UPPER ABDOMEN: Grossly normal. MUSCULOSKELETAL: No acute findings. OTHER: No other acute abnormality. Procedure Note Usman Tirado MD - 06/26/2025 EXAMINATION: CT CHEST WO CONTRAST ORDERING HEALTHCARE PROVIDER: CLINT CARDONA HISTORY: complicated parapneumonic effusion, follow up. TECHNIQUE: CT scan of the chest without intravenous contrast. Reconstructed coronal and sagittal MPR images reviewed. All images stored on PACS. Automated exposure control was used as a dose optimization technique for this examination. COMPARISON: CT chest dated 06/20/2025 FINDINGS: HEART: Normal heart size without pericardial effusion. VASCULATURE: No thoracic aortic aneurysm. MEDIASTINUM/GONZALEZ: No identified masses. No abnormal lymph nodes by size criteria. LUNGS/PLEURA: The central airways patent. Extensive airspace opacity is seen involving the right middle and right lower lobe. There is a small right pleural effusion and pneumothorax. AXILLA: No adenopathy. CHEST WALL: No masses. No soft tissue gas. HARDWARE/LINES/TUBES: A right-sided pleural catheter in satisfactory position. UPPER ABDOMEN: Grossly normal. MUSCULOSKELETAL: No acute findings. OTHER: No other acute abnormality. IMPRESSION: Extensive airspace opacity right middle and right lower lobe, increased in severity compared to the prior examination may represent worsening pneumonia. Right pleural catheter in place with residual small pleural effusion and pneumothorax. Electronically signed by: Usman Tirado M.D. Clint Cardona MD [place] [facility] PROCEDURES Final Result * XR Chest 1 View (06/26/2025 6:22 AM CDT) Anatomical Region Laterality Modality Body, Chest N/A Computed Radiogr aphy 06/26/2025 6:35 AM CDT Impressions 06/26/2025 6:35 AM CDT Unchanged appearance of right lung base opacities and chest tube. Electronically signed by: Bunny Jay M.D. Narrative 06/26/2025 6:35 AM CDT EXAMINATION: 1 view chest radiograph History: Chest tube and empyema. COMPARISON: May 13 2325 TECHNIQUE: Single view chest. FINDINGS: Right chest tube unchanged in position. Right lung base opacities unchanged. Left lung clear. Trachea midline. Heart size normal. Osseous structures unremarkable. Procedure Note Bunny Jay MD - 06/26/2025 EXAMINATION: 1 view chest radiograph History: Chest tube and empyema. COMPARISON: May 13 2325 TECHNIQUE: Single view chest. FINDINGS: Right chest tube unchanged in position. Right lung base opacities unchanged. Left lung clear. Trachea midline. Heart size normal. Osseous structures unremarkable. IMPRESSION: Unchanged appearance of right lung base opacities and chest tube. Electronically signed by: Bunny Jay M.D. us Clint Cardona MD IMG XR PROCEDURES Final Result * (ABNORMAL) CBC without differential (06/26/2025 4:27 AM CDT) WBC 12.35(H) 3.80 - 9.90 K/cumm Hgb 9.5(L) 11.9 - 15.5 g/dL [facility] Hct 30.5(L) 35.6 - 45.5 % [facility] Plt 449(H) 150 - 400 K/cumm [facility] MPV 9.7 9.1 - 12.3 fL [facility] RBC 3.71(L) 3.90 - 5.20 M/cumm [facility] MCV 82.2 81.3 - 96.4 fL [facility] MCH 25.6(L) 27.1 - 33.3 pg [facility] MCHC 31.1(L) 32.3 - 35.7 g/dL [facility] RDW CV 14.2 11.1 - 14.9 % [facility] RDW SD 42.1 35.7 - 48.1 fL [facility] NRBC abs 0.00 0.00 - 0.01 K/cumm [facility] Blood 06/26/2025 4:27 AM CDT 06/26/2025 5:00 AM CDT us Amy Curran MD LAB BLOOD ORDERABLES Gabriella l Result [facility] 1 [facility] Department [place] [address] * eGFR (06/25/2025 7:58 AM CDT) Pathologist [facility] eGFR >90 >=60 mL/min/1. 73 m2 Comment: Interpretive Data Reference Interval Normal >/= 90 mL/min/1.73m2 Mildly decreased* 60 - 89 mL/min/1.73m2 Mildly to moderately decreased 45 - 59 mL/min/1.73m2 Moderately to severely decreased 30 - 44 mL/min/1.73m2 Severely decreased 15 - 29 mL/min/1.73m2 Kidney Failure < 15 mL/min/1.73m2 *Relative to young adult level Estimated glomerular filtration rate is determined by the 2020 CKD-EPI equation recommended by the National Kid[employer] (A Unifying Approach to GFR Estimation: Recommendations of the NKF-ASK Task Force on Reassessing the Inclusion of Race in Diagnosing Kidney Disease, JASN 2020). The CKD-EPI equation should not be used for patients with unstable renal function and has not been validated in children and those over 70. Current interpretive data was last reviewed 2021. Blood 06/25/2025 7:58 AM CDT 06/25/2025 9:36 AM CDT us Amy Curran MD LAB BLOOD ORDERABLES Gabriella mosley Result [facility] Department [place] [address] * (ABNORMAL) CBC without differential (06/25/2025 7:58 AM CDT) WBC 10.29(H) 3.80 - 9.90 K/cumm Hgb 9.4(L) 11.9 - 15.5 g/dL [facility] Hct 29.7(L) 35.6 - 45.5 % [facility] Plt 401(H) 150 - 400 K/cumm [facility] MPV 9.9 9.1 - 12.3 fL [facility] RBC 3.59(L) 3.90 - 5.20 M/cumm [facility] MCV 82.7 81.3 - 96.4 fL [facility] MCH 26.2(L) 27.1 - 33.3 pg [facility] MCHC 31.6(L) 32.3 - 35.7 g/dL [facility] RDW CV 14.1 11.1 - 14.9 % [facility] RDW SD 42.6 35.7 - 48.1 fL [facility] NRBC abs 0.00 0.00 - 0.01 K/cumm [facility] Blood 06/25/2025 7:58 AM CDT 06/25/2025 8:20 AM CDT us Amy Curran MD LAB BLOOD ORDERABLES Gabriella mosley Result [facility] 1 [facility] Department [place] [address] * (ABNORMAL) Comprehensive metabolic panel (06/25/2025 7:58 AM CDT) Sodium 135 135 - 145 mmol/L Potassium, pl 4.4 3.3 - 4.9 mmol/L [facility] Chloride 100 97 - 110 mmol/L [facility]) CO2 27 22 - 32 mmol/L [facility] Anion gap 8 2 - 15 mmol/L [facility] BUN 11 6 - 25 mg/dL [facility] Creatinine 0.84 0.60 - 1.10 mg/dL [facility] Glucose 88 70 - 199 mg/dL [facility] Comment: Interpretive Data Fasting glucose >/= 126 mg/dl is diagnostic for diabetes. Fasting is defined as no caloric intake for at least 8 hours. Fasting glucose between 100 mg/dl to 125 mg/dl is diagnostic of prediabetes. In a patient with classic symptoms of hyperglycemia or hyperglycemic crisis, a random glucose >/= 200 mg/dl is diagnostic for diabetes. In the absence of unequivocal hyperglycemia, results should be confirmed by repeat testing. The classification and Diagnosis of Diabetes Diabetes Care 2021; 46: S19-S40. Current interpretive data was last revised 2022. Calcium 8.8 8.5 - 10.3 mg/dL [facility] Bilirubin, total 0.2 0.1 - 1.2 mg/dL [facility] Protein, pl 6.9 6.5 - 8.5 g/dL [facility] Albumin 3.0(L) 3.5 - 5.0 g/dL [facility] Alk phos 113 40 - 130 Units/L [facility] ALT 15 7 - 45 Units/L [facility] AST 16 10 - 45 Units/L [facility] Blood 06/25/2025 7:58 AM CDT 06/25/2025 9:36 AM CDT Amy Curran MD LAB BLOOD ORDERABLES Gabriella mosley Result [facility] 1 [facility] Department [place] [address] * XR Chest 1 View (06/25/2025 7:35 AM CDT) Anatomical Region Laterality Modality Body, Chest N/A Computed Radiogr aphy 06/25/2025 8:02 AM CDT Impressions 06/25/2025 8:02 AM CDT 1. Again seen is a chest tube with the tip overlying the lower 3rd of the right chest. No pneumothorax. 2. Significant interval improvement of previously seen opacity of the lower half of the right chest. Opacity of the right lung base may reflect examination of effusion, atelectasis and/or infiltrate. Electronically signed by: Brady Robert M.D. Narrative 06/25/2025 8:02 AM CDT EXAMINATION: XR CHEST 1 VIEW HISTORY: chest tube placement TECHNIQUE: Single view chest COMPARISON: Prior exam 06/24/2025 and 06/03/2025 FINDINGS: Again seen is a chest tube overlying the lower 3rd of the right chest. No pneumothorax is identified. There has been interval improvement of opacity of the right lower chest with centrally decreased opacity of the right lung base. This may reflect the examination of effusion, atelectasis and/or infiltrate. Pulmonary vasculature appears normal. Normal cardiothymic mediastinal silhouette. No acute osseous findings. Procedure Note Brady Robert MD - 06/25/2025 EXAMINATION: XR CHEST 1 VIEW HISTORY: chest tube placement TECHNIQUE: Single view chest COMPARISON: Prior exam 06/24/2025 and 06/03/2025 FINDINGS: Again seen is a chest tube overlying the lower 3rd of the right chest. No pneumothorax is identified. There has been interval improvement of opacity of the right lower chest with centrally decreased opacity of the right lung base. This may reflect the examination of effusion, atelectasis and/or infiltrate. Pulmonary vasculature appears normal. Normal cardiothymic mediastinal silhouette. No acute osseous findings. IMPRESSION: 1. Again seen is a chest tube with the tip overlying the lower 3rd of the right chest. No pneumothorax. 2. Significant interval improvement of previously seen opacity of the lower half of the right chest. Opacity of the right lung base may reflect examination of effusion, atelectasis and/or infiltrate. Electronically signed by: Brady Robert M.D. Clint Cardona MD IMG XR PROCEDURES Final Result * (ABNORMAL) CBC without differential (06/24/2025 8:22 AM CDT) WBC 11.84(H) 3.80 - 9.90 K/cumm Hgb 9.4(L) 11.9 - 15.5 g/dL [facility] Hct 29.3(L) 35.6 - 45.5 % [facility] Plt 385 150 - 400 K/cumm [facility] MPV 10.7 9.1 - 12.3 fL [facility] RBC 3.58(L) 3.90 - 5.20 M/cumm [facility] MCV 81.8 81.3 - 96.4 fL [facility] MCH 26.3(L) 27.1 - 33.3 pg [facility] MCHC 32.1(L) 32.3 - 35.7 g/dL [facility] RDW CV 13.9 11.1 - 14.9 % [facility] RDW SD 41.4 35.7 - 48.1 fL [facility] NRBC abs 0.00 0.00 - 0.01 K/cumm [facility] Blood 06/24/2025 8:22 AM CDT 06/24/2025 8:53 AM CDT us Amy Curran MD LAB BLOOD ORDERABLES Gabriella mosley Result [facility] Department [place] [address] * XR Chest 1 View (06/24/2025 7:01 AM CDT) Anatomical Region Laterality Modality Body, Chest N/A Computed Radiogr aphy 06/24/2025 7:46 AM CDT Impressions 06/24/2025 7:46 AM CDT 1. Interval placement of a right-sided chest tube as described above. No definite evidence of a pneumothorax. 2. Moderate to large right pleural effusion, mildly improved in comparison to the prior study. 3. Small left pleural effusion with patchy left basilar airspace opacities, mildly increased in comparison to the prior study. 4. Grossly stable patchy airspace opacities in right lung. Electronically signed by: Chago Caro D.O. Narrative 06/24/2025 7:46 AM CDT EXAMINATION: 1 view chest radiograph TECHNIQUE: Single portable frontal view of the chest was obtained. FINDINGS: The heart size is stable. The pulmonary vasculature and mediastinum are grossly stable. There is interval placement of a right-sided chest tube terminating in lateral mid right lung. There is a moderate to large right pleural effusion, mildly improved in comparison to the prior study. There are grossly stable patchy airspace opacities in the right lung. There are interval mildly increased patchy left basilar airspace opacities. There is interval development of a small left pleural effusion. The osseous structures are acutely grossly stable. Procedure Note Chago Caro, - 06/24/2025 EXAMINATION: 1 view chest radiograph TECHNIQUE: Single portable frontal view of the chest was obtained. FINDINGS: The heart size is stable. The pulmonary vasculature and mediastinum are grossly stable. There is interval placement of a right-sided chest tube terminating in lateral mid right lung. There is a moderate to large right pleural effusion, mildly improved in comparison to the prior study. There are grossly stable patchy airspace opacities in the right lung. There are interval mildly increased patchy left basilar airspace opacities. There is interval development of a small left pleural effusion. The osseous structures are acutely grossly stable. IMPRESSION: 1. Interval placement of a right-sided chest tube as described above. No definite evidence of a pneumothorax. 2. Moderate to large right pleural effusion, mildly improved in comparison to the prior study. 3. Small left pleural effusion with patchy left basilar airspace opacities, mildly increased in comparison to the prior study. 4. Grossly stable patchy airspace opacities in right lung. Electronically signed by: Chago Caro D.O. Clint Cardona MD IMG XR PROCEDURES Final Result * Cytology (06/24/2025 12:00 AM CDT) Fluid (Pleura (Cytology)) 06/24/2025 06/24/2025 9:08 AM CDT Narrative [facility] - 06/25/2025 4:34 PM CDT EPIC results best viewed via link to PDF [facility] Department of Pathology [address] [place] [address] Note to Patients: This report may contain a detailed description of human tissue sent by a health care provider to the laboratory for pathologic evaluation. The content of this report is essential for diagnosis and may provide important critical findings. This information may be unfamiliar to patients to review without a medical professional present. It is advised that the patient review this report in the presence of a health care provider who can answer questions and explain the details. Final Report Patient Name: ANA RONDON Address: [facility] [address] , [place] [address] Gender: F : 1995 (Age: 29) Service: Medical Location: [facility] Hospital # [id number] Patient Type: [facility] Taken: 06/24/2025 Received: 06/24/2025 Accessioned: 06/24/2025 Reported: 06/25/2025 Physician(s): Brian Lobo MD Diagnosis: Pleural fluid, right, cytology - Acute inflammatory cells present - No evidence of malignancy - See description Shelton Cintron MD PhD Report Electronically Reviewed and Signed Out By Shelton Cintron MD PhD 06/25/2025 16:34:17Specimen(s) Received: A: Fluid, Pleural, Right Clinical History: The patient is a 29 year old female with a right pleural effusion. Gross Description: 1 container received with 25 cc unfixed yellow fluid. 1 ThinPrep, 1 air-dried cytospin for Alexandre stain and 1 cell block made. Microscopic Description: The pleural fluid specimen is received as one thin prep slide, one air dried cytospin for Alexandre stain and slides from one cell block. The slides show frequent acute inflammatory cells. Immunohistochemical stains are performed and show no significant Calretinin positive population of mesothelial cells or MOC-31 positive population of epithelial cells. There is no evidence of malignancy. Clinical/radiographic correlation and continued follow-up recommended. The performance characteristics of some immunohistochemical stains, fluorescence in-situ hybridization tests and immunophenotyping by flow cytometry cited in this report (if any) were determined by the Surgical Pathology Department at [facility] as part of an ongoing quality inspector program and in compliance with federally mandated regulations drawn from the Clinical Laboratory Improvement Act of 1988 (CLIA '88). Some of these tests rely on the use of analyte specific reagents and are subject to specific labeling requirements by the US Food and Drug Administration. Such diagnostic tests may only be performed in a facility that is certified by the Department of Health and Human Services as a high complexity laboratory under CLIA '88. The FDA has determined that such clearance or approval is not necessary. This test is used for clinical purposes. It should not be regarded as investigational or for research. Nevertheless, federal rules concerning the medical use of analyte specific reagents require that the following disclaimer be attached to the report: This test was developed and its performance characteristics determined by the Surgical Pathology Department [facility]. It has not been cleared or approved by the U. S. Food and Drug Administration. Unless otherwise noted all cytology processing, staining and screening is performed at [facility] ([address] [place] [address]). REPORT IMAGES AND SCANNED DOCUMENTS, IF INCLUDED, ONLY VIEWABLE IN PDF VERSION OF REPORT Brian Lobo Jr., MD LAB CYTOLOGY ORDERA BLES Final Result PATHOLOGY [facility] ([place] 1 [place] [address] * XR Chest 1 View (06/23/2025 5:03 PM CDT) Anatomical Region Laterality Modality Body, Chest N/A Computed Radiogr aphy 06/23/2025 7:05 PM CDT Narrative 06/23/2025 7:07 PM CDT EXAM DESCRIPTION: XR CHEST 1 VIEW REASON FOR STUDY: post chest tube post chest tube TECHNIQUE: Single radiographic view of the chest. COMPARISON: Chest x-ray of June 23, 2025. FINDINGS: LUNGS/PLEURA: Left lung is mildly hypoventilatory yet clear, unchanged. There is a large right effusion with a lobulated margin, suspicious for loculation. This is not significantly changed as compared to previous. HEART/MEDIASTINUM: Cardiac silhouette is obscured along the right heart border. The left heart border appears unremarkable. Remaining mediastinal silhouettes are unremarkable. HARDWARE/LINES/TUBES: Pigtail catheter projects over the right pleural effusion. BONES: No acute findings. IMPRESSION: Large right pleural effusion with pigtail catheter in place. THIS IS AN ELECTRONICALLY VERIFIED FINAL REPORT 06/23/2025 7:07 PM - Electronically signed by Marissa Melgoza M.D. SN: Report ID: [id number] Reading Location: [id number] Procedure Note Marissa Melgoza MD - 06/23/2025 EXAM DESCRIPTION: XR CHEST 1 VIEW REASON FOR STUDY: post chest tube post chest tube TECHNIQUE: Single radiographic view of the chest. COMPARISON: Chest x-ray of June 23, 2025. FINDINGS: LUNGS/PLEURA: Left lung is mildly hypoventilatory yet clear, unchanged. There is a large right effusion with a lobulated margin, suspicious for loculation. This is not significantly changed as compared to previous. HEART/MEDIASTINUM: Cardiac silhouette is obscured along the right heart border. The left heart border appears unremarkable. Remainingmediastinal silhouettes are unremarkable. HARDWARE/LINES/TUBES: Pigtail catheter projects over the right pleural effusion. BONES: No acute findings. IMPRESSION: Large right pleural effusion with pigtail catheter in place. THIS IS AN ELECTRONICALLY VERIFIED FINAL REPORT 06/23/2025 7:07 PM - Electronically signed by Marissa Melgoza M.D. SN: Report ID: [id number] Reading Location: [place] [address] us Clint Cardona MD IMG XR PROCEDURES Final Result * pH, Pleural Fluid (06/23/2025 4:37 PM CDT) Body site, fld Pleural fluid, right pH, fld 6.96 [facility] Comment: Analytical characteristics have been validated by the performing laboratory. No reference range established - see interpretive comments. Interpretive Data Pleural - pH is approximately 7.64. pH <7.2 is indicative of complicated parapneumonic effusions. References: [place] Textbook of Clinical Chemistry and Molecular Diagnostics, Sixth Edition. Elsevier Press. 2018. Chapter 43, Body Fluids, p. 925 Pleural effusions: Evaluation and Management. [place] Clin J Med 2005;72:854-72. Current Interpretive Data was last revised 21. Fluid 06/23/2025 4:37 PM CDT 06/23/2025 4:44 PM CDT Amy Curran MD LAB BODY FLUIDS AND STOOL S ORDERABLES Final Result [facility] 1 [facility] Department [place] [address] * XR Chest 1 View (Portable) (06/23/2025 1:37 PM CDT) Anatomical Region Laterality Modality Body, Chest N/A Computed Radiogr aphy 06/23/2025 1:40 PM CDT Narrative 06/23/2025 2:05 PM CDT EXAM DESCRIPTION: XR CHEST 1 VIEW REASON FOR STUDY: Pleural effusion Post thora TECHNIQUE: Single frontal radiographic view(s) of the chest. COMPARISON: 06/23/2025 FINDINGS: The heart size is stable. The pulmonary vasculature and mediastinum are grossly stable. There is a uvcjlhsb-lp-gwdol right pleural effusion, increased in comparison to the prior CT dated 06/20/2025, and findings are concerning for worsening effusion and aeration of the right lung. There is no definite evidence of a pneumothorax. There are mild patchy left basilar airspace opacities. The osseous structures are acutely grossly stable. IMPRESSION: 1. Lepzkxyq-gw-izpvs right pleural effusion, increased in comparison to the prior CT dated 06/20/2025, and findings are concerning for worsening effusion and aeration of the right lung. 2. Mild patchy left basilar airspace opacities, which is likely related to subsegmental atelectasis/scarring and less likely developing airspace disease. 3. No definite evidence of a pneumothorax. Findings were discussed with Dr. Cardona by Dr. Caro at 14:05 hours on 06/23/2025 . THIS IS AN ELECTRONICALLY VERIFIED FINAL REPORT 06/23/2025 2:05 PM - Electronically signed by Chago Caro D.O. PS: PS Report ID: [id number] Reading Location: [id number] Procedure Note Chago Caro, DO - 06/23/2025 EXAM DESCRIPTION: XR CHEST 1 VIEW REASON FOR STUDY: Pleural effusion Post thora TECHNIQUE: Single frontal radiographic view(s) of the chest. COMPARISON: 06/23/2025 FINDINGS: The heart size is stable. The pulmonary vasculature and mediastinum are grossly stable. There is a xmakqgsc-ix-ihecb right pleural effusion, increased in comparison to the prior CT dated 06/20/2025, and findings are concerning for worsening effusion and aeration of the right lung. Thereis no definite evidence of a pneumothorax. There are mild patchy left basilar airspace opacities. The osseous structures are acutely grossly stable. IMPRESSION: 1. Jlwuzyqp-tn-poehi right pleural effusion, increased in comparison tothe prior CT dated 06/20/2025, and findings are concerning for worseningeffusion and aeration of the right lung. 2. Mild patchy left basilar airspace opacities, which is likely relatedto subsegmental atelectasis/scarring and less likely developing airspacedisease. 3. No definite evidence of a pneumothorax. Findings were discussed with Dr. Cardona by Dr. Caro at 14:05 hourson 06/23/2025 . THIS IS AN ELECTRONICALLY VERIFIED FINAL REPORT 06/23/2025 2:05 PM - Electronically signed by Chago Caro D.O. PS: PS Report ID: [id number] Reading Location: [place] [id number] us Chago Caro DO IMG XR PROCEDURES Final R esult * US Guided Thoracentesis Right (06/23/2025 12:37 PM CDT) Anatomical Region Laterality Modality Chest N/A Ultrasound 06/23/2025 12:3 8 PM CDT Narrative 06/23/2025 12:39 PM CDT EXAM DESCRIPTION: US GUIDED THORACENTESIS RIGHT HISTORY: Right pleural effusion r/o empyema, r/o empyema Ultrasound-guided thoracentesis is requested. COMPARISON: 06/20/2025 TECHNIQUE/FINDINGS: Pertinent imaging studies were reviewed including chest CT dated 06/20/2025. Immediately prior to the procedure, the healthcare team performed the safety pause and verbally confirmed that the patient, the planned procedure, the site and side were accurate. Pre-procedure sonographic scanning demonstrated a small loculated pleural effusion. The skin was marked, prepped and draped over the posterior thorax. Local anesthesia was used with 1% lidocaine, including subcutaneous and deeper tissues. A 4-Rw[place]an 10 cm One Step Centesis catheter was used to drain 40 mL of serous fluid. Needle placement was documented with sonographic images. Postprocedure image demonstrates interval decrease in the pleural fluid. Hemostasis was achieved. The area was cleaned and then dressed with a Band-Aid. A postprocedure chest radiograph was ordered to be performed in 1 hour. The patient tolerated the procedure well with no immediate complication evident. The patient was returned to the inpatient unit in stable condition. Post procedure education was completed including pain management instructions. Estimated blood loss: <5 ml IMPRESSION: Successful ultrasound-guided thoracentesis. 40 mL of serous fluid was removed. Samples were sent for analysis, which are pending. THIS IS AN ELECTRONICALLY VERIFIED FINAL REPORT 06/23/2025 12:39 PM - Electronically signed by Chago Caro D.O. PS: PS Report ID: [id number] Reading Location: [id number] Procedure Note Chago Caro, DO - 06/23/2025 EXAM DESCRIPTION: US GUIDED THORACENTESIS RIGHT HISTORY: Right pleural effusion r/o empyema, r/o empyema Ultrasound-guided thoracentesis is requested. COMPARISON: 06/20/2025 TECHNIQUE/FINDINGS: Pertinent imaging studies were reviewed including chest CT dated1. Immediately prior to the procedure, the healthcare team performed thesafety pause and verbally confirmed that the patient, the planned procedure, thesite and side were accurate. Pre-procedure sonographic scanning demonstrated a small loculated pleural effusion. The skin was marked, prepped and draped over the posteriorthorax. Local anesthesia was used with 1% lidocaine, including subcutaneous and deeper tissues. A 4-Rwandan 10 cm One Step Centesis catheter was used todrain 40 mL of serous fluid. Needle placement was documented with sonographic images. Postprocedure image demonstrates interval decrease in the pleural fluid. Hemostasis was achieved. The area was cleaned and then dressed with a Band-Aid. A postprocedure chest radiograph was ordered to be performed in1 hour. The patient tolerated the procedure well with no immediate complication evident. The patient was returned to the inpatient unit in stablecondition. Post procedure education was completed including pain managementinstructions. Estimated blood loss: <5 ml IMPRESSION: Successful ultrasound-guided thoracentesis. 40 mL of serous fluid was removed. Samples were sent for analysis, which are pending. THIS IS AN ELECTRONICALLY VERIFIED FINAL REPORT 06/23/2025 12:39 PM - Electronically signed by Chago Caro D.O. PS: PS Report ID: [id number] Reading Location: [place] [address] Brian Lobo Jr., MD IM US PROCEDURES F inal Result * Cell Differential, Body Fluid (06/23/2025 12:23 PM CDT) Total cells diffed 100 % Comment: Interpretive Data Unless otherwise specified, the reference range and other method performance specifications have not been established for CSF/Body Fluid tests. The test results should be integrated into the clinical context for interpretation. Current interpretive data was last revised on 2019. Neutrophils, fld 94 % [facility] ([place]) Lymphs, fld 6 % [facility] ([place]) Fluid 06/23/2025 12:2 3 PM CDT 06/23/2025 12:31 PM CDT Brian Lobo Jr., MD LAB BODY FLUIDS AND STOOLS ORDERABLES Final Result [facility] ([place]) 1 [facility] Department [place] [address] * Cell count w/rflx diff, body fluid (06/23/2025 12:23 PM CDT) Specimen type, fld Pleural Color, fld Yellow [facility] ([place]) Clarity, fld Clear [facility] ([place]) Nucleated cells, fld 5,659 /cumm [facility] ([place]) Comment: Interpretive Data Unless otherwise specified, the reference range and other method performance specifications have not been established for CSF/Body Fluid tests. The test results should be integrated into the clinical context for interpretation. Current interpretive data was last revised on 2019. RBC, fld 2,000 /cumm [facility] ([place]) Fluid 06/23/2025 12:2 3 PM CDT 06/23/2025 12:31 PM CDT us Brian Lobo Jr., MD LAB BODY FLUIDS AND STOOLS ORDERABLES Final Result [facility] ([place]) 1 [facility] Department [place] [address] * Aerobic and anaerobic culture and gram stain Pleural fluid Pleural cavity (06/23/2025 12:23 PM CDT) Direct Specimen Exam Stain: Cytospin Gram stain shows: Abundant polymorphonuclear leukocytes seen. No organisms seen. Comment:Testing performed by : [facility], [address] [place]., [address] Report Final Report: No growth [facility] ([place]) Comment:Testing performed by : [facility], [address] [place]., [address] Pleural fluid (Pleural cavity) 06/23/2025 12:23 PM CDT 06/23/2025 2:28 PM CDT Narrative [facility] ([place]) - 06/29/2025 12:48 PM CDT Testing performed by [facility] Microbiology Laboratory ([phone]) Specimens submitted from normally sterile body sites will have all bacterial morphotypes identified. Specimens that contain grossly mixed candy and/or are from body sites that are not normally sterile will be examined for Staphylococcus aureus, Pseudomonas aeruginosa, beta-hemolytic strep, vancomycin-resistant Enterococcus, Bacteroides, Parabacteroides, Clostridium perfringens and fungus. If any of these are isolated, the organism will be reported. Current interpretive data was last revised on 2019. us Brian Lobo Jr., MD LAB MICROBIOLOGY - GENERAL ORDERABLES Final Result Performing Organization Address City/[facility]/ZIP Co de Phone Number [facility] ([place]) 1 [facility] [place] [address] * Protein, body fluid (06/23/2025 12:23 PM CDT) Specimen type, fld Pleural Comment:Testing performed by : [facility], [address] [place]., [address] Body site, fld Pleural fluid, right [facility] ([place]) Comment:Testing performed by : [facility], [address] [place]., [address] Protein, fld 5.7 g/dL [facility] ([place]) Comment: The above specimen type is not cleared for use in this method by the FDA. Analytical characteristics have been validated by the performing laboratory. No reference range established - see interpretive comments. Interpretive Data Pleural and Pericardial Fluids - Ratio of fluid to serum protein > or = 0.5 is indicative of exudate and < 0.5 of transudate. Peritoneal - Protein > or = 3.0 g/dL is indicative of exudates and < 3.0 g/dL of transudates. Reference: Nata Textbook of Clinical Chemistry and Molecular Diagnostics, Sixth Edition. Elsevier Press. 2018. Chapter 43, Body Fluids, p. 925 Current Interpretive Data was last revised 2019. Testing performed by: [facility], [address] [place]., [address] Fluid 06/23/2025 12:2 3 PM CDT 06/23/2025 4:31 PM CDT us Brian Lobo Jr., MD LAB BODY FLUIDS AND STOOLS ORDERABLES Final Result [facility] ([place]) 1 [facility] [place] [address] * Lactate dehydrogenase, body fluid (06/23/2025 12:23 PM CDT) Specimen type, fld Pleural Comment:Testing performed by : [facility], [address] [place]., [address] Body site, fld Pleural fluid, right [facility] ([place]) Comment:Testing performed by : [facility], [address] [place]., [address] LD, fld 3,670 Units/L [facility] ([place]) Comment: Repeated on Dilution The above specimen type is not cleared for use in this method by the FDA. Analytical characteristics have been validated by the performing laboratory. No reference range established - see interpretive comments. Interpretive Data Ratio of fluid to serum LD > or = 0.6 is indicative of exudate and < 0.6 of transudate. References: The Biochemistry of Body Fluids. Association of Clinical Biochemists in [place]. June 2009; pp 1-36. Nata Textbook of Clinical Chemistry and Molecular Diagnostics, Sixth Edition. Elsevier Press. 2018. Chapter 43, Body Fluids, p. 925 Current Interpretive Data was last revised 2019. Testing performed by: [facility], [address] [place]., [address] Fluid 06/23/2025 12:2 3 PM CDT 06/23/2025 4:31 PM CDT Brian Lobo Jr., MD LAB BODY FLUIDS AND STOOLS ORDERABLES Final Result [facility] ([place]) 1 [facility] Department [place] [address] * Glucose, body fluid (06/23/2025 12:23 PM CDT) Specimen type, fld Pleural Comment:Testing performed by : [facility], [address] [place]., [address] Body site, fld Pleural fluid, right [facility] ([place]) Comment:Testing performed by : [facility], [address] [place]., [address] Glucose, fld <20 mg/dL [facility] ([place]) Comment: Repeated and Verified The above specimen type is not cleared for use in this method by the FDA. Analytical characteristics have been validated by the performing laboratory. No reference range established - see interpretive comments. Interpretive Data Pleural - Glucose < 60 mg/dL is indicative of complicated parapneumonic effusions. Peritoneal - normally equivalent to plasma glucose. Will be less than concurrent plasma value in peritoneal bacterial infections. Pericardial - Fluid to serum glucose ratio < 0.3 is indicative of bacterial infection. Pancreatic cyst fluid - glucose concentrations have been shown to be a useful aid for distinguishing mucinous from non-mucinous cysts. Low glucose concentrations in a pancreatic cyst fluid (< 40-50 mg/dL) is suggestive of a mucinous cyst. However, body fluid glucose concentrations may be decreased due to increased cellular metabolism and should be interpreted in the context of blood glucose concentrations and in conjunction with other laboratory and clinical findings. References: Nata Textbook of Clinical Chemistry and Molecular Diagnostics, Sixth Edition. Elsevier Press. 2018. Chapter 43, Body Fluids, p. 925 Pleural effusions: Evaluation and Management. [place] Clin J Med 2005;72:854-72. News360 Test directory, Body Fluid Reference Intervals and/or Interpretative Information. [email or web address] Radhika ALCANTARA et al. Pancreatic cyst fluid glucose: rapid, inexpensive, and accurate diagnosis of mucinous pancreatic cysts. Surgery 2018;163:600-5. Carl DG et al. Differential diagnosis of pancreatic cysts: A prospective study on the role of intra-cystic glucose concentration. Digestive Liver Dis 2020;52:1026-32. Current Interpretive Data was last revised 2021. Testing performed by: [facility], 1 [place] [address] Fluid 06/23/2025 12:2 3 PM CDT 06/23/2025 4:31 PM CDT Narrative [facility] ([place]) - 06/23/2025 5:32 PM CDT Body Fluid Type->Pleural Brian Lobo Jr., MD LAB BODY FLUIDS AND STOOLS ORDERABLES Final Result [facility] ([place]) 1 [facility] Department [place] [address] * (ABNORMAL) CBC without differential (06/23/2025 9:16 AM CDT) WBC 10.87(H) 3.80 - 9.90 K/cumm Hgb 9.8(L) 11.9 - 15.5 g/dL [facility] ([place]) Hct 31.5(L) 35.6 - 45.5 % [facility] ([place]) Plt 321 150 - 400 K/cumm [facility] ([place]) MPV 10.3 9.1 - 12.3 fL [facility] ([place]) RBC 3.72(L) 3.90 - 5.20 M/cumm [facility] ([place]) MCV 84.7 81.3 - 96.4 fL [facility] ([place]) MCH 26.3(L) 27.1 - 33.3 pg [facility] ([place]) MCHC 31.1(L) 32.3 - 35.7 g/dL [facility] ([place]) RDW CV 13.8 11.1 - 14.9 % [facility] ([place]) RDW SD 43.0 35.7 - 48.1 fL [facility] ([place]) NRBC abs 0.00 0.00 - 0.01 K/cumm [facility] ([place]) Blood 06/23/2025 9:16 AM CDT 06/23/2025 9:38 AM CDT us Amy Curran MD LAB BLOOD ORDERABLES Gabriella l Result [facility] ([place]) [address] [facility] [place] [address] * Protime-INR (06/22/2025 5:31 AM CDT) PT 13.0 10.2 - 13.5 sec [facility] ([place]) INR 1.15 0.90 - 1.20 [facility] ([place]) Comment: Interpretive data Oral anticoagulant therapeutic ranges: Venous thromboembolism prophylaxis or treatment: 2.0-3.0 CARDIOLOGY Standard range: 2.0-3.0 High-intensity range: 2.5-3.5 Refer to indication-specific guidelines for appropriate target ranges for prosthetic heart valve replacement. Current interpretive data was last revised on 2019. Blood 06/22/2025 5:31 AM CDT 06/22/2025 6:12 AM CDT Brian Lobo Jr., MD LAB BLOOD ORDERABLE S Final Result Performing Organization Address City/[facility]/ZIP Co de Phone Number [facility] ([place]) [address] [place] [id number] * Lactate dehydrogenase (LD) (06/22/2025 5:31 AM CDT) Lactate dehydrogenase (LDH) 155 100 - 250 Units/L Blood 06/22/2025 5:31 AM CDT 06/22/2025 6:12 AM CDT Brian Lobo Jr., MD LAB BLOOD ORDERABLE S Final Result Performing Organization Address [facility] Co de Phone Number ABIMBOLACHRISTINA [facility] ([place]) [address] [place] [address] * Urinalysis reflex to microscopic and culture Urine (06/21/2025 4:05 PM CDT) Color, ur Yellow Yellow Clarity, ur Clear Clear [facility] ([place]) Specific gravity, ur 1.011 1.003 - 1.030 [facility] ([place]) pH, urine 6.0 [facility] ([place]) Comment: Interpretive Data U rine pH is affected by diet, medications, systemic acid-base disturbances, and renal tubular function. pH may affect urinary stone formation. For example, urine pH below 6.0 may help reduce the tendency for calcium phosphate stones and pH greater than 6.0 may reduce the tendency for uric acid stone formation. Source: [facility] Current Interpretive Data was last revised on 2017 Protein, ur ql Trace Negative [facility] ([place]) Glucose, ur ql Negative Negative [facility] ([place]) Ketones, ur Negative Negative [facility] ([place]) Bilirubin, ur Negative Negative [facility] ([place]) Blood, ur Negative Negative [facility] ([place]) Urobilinogen, ur <2.0 <2.0 mg/dL [facility] ([place]) Nitrite, ur Negative Negative [facility] ([place]) Leukocyte esterase, ur Negative Negative [facility] ([place]) UA reflex comment Reflex conditions for microscopic UA and culture not met. [facility] ([place]) Urine 06/21/2025 4:05 PM CDT 06/21/2025 4:09 PM CDT Brian Lobo Jr., MD LAB MICROBIOLOGY - GENERAL ORDERABLES Final Result [facility] ([place]) 1 [facility] Department [place] [address] * eGFR (06/21/2025 7:04 AM CDT) eGFR >90 >=60 mL/min/1. 73 m2 Comment: Interpretive Data Reference Interval Normal >/= 90 mL/min/1.73m2 Mildly decreased* 60 - 89 mL/min/1.73m2 Mildly to moderately decreased 45 - 59 mL/min/1.73m2 Moderately to severely decreased 30 - 44 mL/min/1.73m2 Severely decreased 15 - 29 mL/min/1.73m2 Kidney Failure < 15 mL/min/1.73m2 *Relative to young adult level Estimated glomerular filtration rate is determined by the 2020 CKD-EPI equation recommended by the National Kidney Foundation (A Unifying Approach to GFR Estimation: Recommendations of the NKF-ASK Task Force on Reassessing the Inclusion of Race in Diagnosing Kidney Disease, JASN 2020). The CKD-EPI equation should not be used for patients with unstable renal function and has not been validated in children and those over 70. Current interpretive data was last reviewed 2021. Blood 06/21/2025 7:04 AM CDT 06/21/2025 7:19 AM CDT Sherry Jorgensen MD LAB BLOOD ORDERABLES Gabriella melany Result [facility] ([place]) 1 [facility] Department [place] [address] * (ABNORMAL) Differential, auto (06/21/2025 7:04 AM CDT) Neutrophil abs 11.23(H) 1.50 - 6.50 K/cumm Imm gran abs 0.05 0.00 - 0.10 K/cumm [facility] ([place]) Lymphocyte abs 1.28 0.80 - 3.30 K/cumm [facility] ([place]) Monocyte abs 1.08(H) 0.20 - 0.80 K/cumm [facility] ([place]) Eosinophil abs 0.32 0.00 - 0.50 K/cumm [facility] ([place]) Basophil abs 0.07 0.00 - 0.10 K/cumm [facility] ([place]) Neutrophil pct 80.0 % [facility] ([place]) Comment: Interpretive Data Percent cell count reference ranges are not reported, since discordance with absolute values may lead to misinterpretation of CBC data. Current Interpretive Data was last revised on 2017. Imm gran pct 0.4 % [facility] ([place]) Comment: Interpretive Data Percent cell count reference ranges are not reported, since discordance with absolute values may lead to misinterpretation of CBC data. Current Interpretive Data was last revised on 2017. Lymphocyte pct 9.1 % [facility] ([place]) Comment: Interpretive Data Percent cell count reference ranges are not reported, since discordance with absolute values may lead to misinterpretation of CBC data. Current Interpretive Data was last revised on 2017. Monocyte pct 7.7 % [facility] ([place]) Comment: Interpretive Data Percent cell count reference ranges are not reported, since discordance with absolute values may lead to misinterpretation of CBC data. Current Interpretive Data was last revised on 2017. Eosinophil pct 2.3 % [facility] ([place]) Comment: Interpretive Data Percent cell count reference ranges are not reported, since discordance with absolute values may lead to misinterpretation of CBC data. Current Interpretive Data was last revised on 2017. Basophil pct 0.5 % [facility] ([place]) Comment: Interpretive Data Percent cell count reference ranges are not reported, since discordance with absolute values may lead to misinterpretation of CBC data. Current Interpretive Data was last revised on 2017. Blood 06/21/2025 7:04 AM CDT 06/21/2025 7:19 AM CDT Sherry Jorgensen MD LAB BLOOD ORDERABLES Gabriella mosley Result [facility] ([place]) 1 [facility] Department [place] [address] * (ABNORMAL) CBC with auto differential (06/21/2025 7:04 AM CDT) WBC 14.03(H) 3.80 - 9.90 K/cumm Hgb 10.3(L) 11.9 - 15.5 g/dL [facility] ([place]) Hct 32.3(L) 35.6 - 45.5 % [facility] ([place]) Plt 246 150 - 400 K/cumm [facility] ([place]) MPV 11.5 9.1 - 12.3 fL [facility] ([place]) RBC 3.87(L) 3.90 - 5.20 M/cumm [facility] ([place]) MCV 83.5 81.3 - 96.4 fL [facility] ([place]) MCH 26.6(L) 27.1 - 33.3 pg [facility] ([place]) MCHC 31.9(L) 32.3 - 35.7 g/dL [facility] ([place]) RDW CV 13.8 11.1 - 14.9 % [facility] ([place]) RDW SD 42.2 35.7 - 48.1 fL [facility] ([place]) NRBC abs 0.00 0.00 - 0.01 K/cumm [facility] ([place]) Blood 06/21/2025 7:04 AM CDT 06/21/2025 7:19 AM CDT Sherry Jorgensen MD LAB BLOOD ORDERABLES Gabriella mosley Result [facility] ([place]) 1 [facility] Department [place] [address] * (ABNORMAL) Comprehensive metabolic panel (06/21/2025 7:04 AM CDT) Sodium 135 135 - 145 mmol/L Potassium, pl 3.8 3.3 - 4.9 mmol/L [facility] ([place]) Chloride 103 97 - 110 mmol/L [facility] ([place]) CO2 22 22 - 32 mmol/L [facility] ([place]) Anion gap 10 2 - 15 mmol/L [facility] ([place]) BUN 9 6 - 25 mg/dL [facility] ([place]) Creatinine 0.76 0.60 - 1.10 mg/dL [facility] ([place]) Glucose 112 70 - 199 mg/dL [facility] ([place]) Comment: Interpretive Data Fasting glucose >/= 126 mg/dl is diagnostic for diabetes. Fasting is defined as no caloric intake for at least 8 hours. Fasting glucose between 100 mg/dl to 125 mg/dl is diagnostic of prediabetes. In a patient with classic symptoms of hyperglycemia or hyperglycemic crisis, a random glucose >/= 200 mg/dl is diagnostic for diabetes. In the absence of unequivocal hyperglycemia, results should be confirmed by repeat testing. The classification and Diagnosis of Diabetes Diabetes Care 202; 46: S19-S40. Current interpretive data was last revised 2022. Calcium 9.0 8.5 - 10.3 mg/dL [facility] ([place]) Bilirubin, total 0.5 0.1 - 1.2 mg/dL [facility] ([place]) Protein, pl 6.9 6.5 - 8.5 g/dL [facility] ([place]) Albumin 3.3(L) 3.5 - 5.0 g/dL [facility] ([place]) Alk phos 73 40 - 130 Units/L [facility] ([place]) ALT 17 7 - 45 Units/L [facility] ([place]) AST 19 10 - 45 Units/L [facility] ([place]) Blood 06/21/2025 7:04 AM CDT 06/21/2025 7:19 AM CDT us Sherry Jorgensen MD LAB BLOOD ORDERABLES Gabriella l Result [facility] ([place]) 1 [facility] [place] [address] * (ABNORMAL) Procalcitonin (06/20/2025 8:41 AM CDT) Procalcitonin 0.41(H) <=0.25 ng/mL Comment:Testing performed by : [facility], [facility] [facility], [place]., [address] Blood 06/20/2025 8:41 AM CDT 06/20/2025 2:12 PM CDT us Lenny Tillman MD LAB BLOOD ORDERABLES Fi nal Result Performing Organization Address [facility] Co de Phone Number [facility] ([place]) 1 [facility] [place] [address] * CT Chest PE (CTA) Abdomen Pelvis W Contrast (06/20/2025 2:09 AM CDT) Anatomical Region Laterality Modality Body N/A Computed Tomogra phy 06/20/2025 2:31 AM CDT Narrative 06/20/2025 2:42 AM CDT EXAM DESCRIPTION: CT CHEST PE (CTA) ABDOMEN PELVIS W CONTRAST REASON FOR STUDY: pain co of R flank pain, per ems pt was seen at OSH on 06/05 prescribed steroid and muscle relaxer without relief, pt denies any injury, pt states she has a hx of gallstones, pt states hot showers help the pain TECHNIQUE: CT angiogram of the chest with routine abdomen and pelvis performed with intravenous and without oral contrast using helical scanning technique with dynamic intravenous contrast injection. Reconstructed coronal and sagittal MPR images reviewed. All images stored on PACS. 3D MIP images of the chest rendered on scanning unit and reviewed at time of interpretation. Automated exposure control was used as a dose optimization technique for this examination. CONTRAST TYPE/DOSE: 75mL of IOVERSOL 350 MG IODINE/ML INTRAVENOUS SYRINGE injected via intravenous COMPARISON: 06/19/2025 FINDINGS: CHEST VASCULAR: Bolus timing is adequate and no filling defect is seen in the pulmonary arterial tree. Systemic arterial structures are partially opacified and reveal no acute abnormality. MEDIASTINUM/GONZALEZ: Heart size normal. No coronary artery calcification. No enlarged lymph node. Thoracic inlet unremarkable. LUNGS: Small to moderate right pleural effusion with passive atelectasis similar to the prior. Left lung mostly clear. Trachea and major airways patent. CHEST MUSCULOSKELETAL: Unremarkable. CHEST WALL: Unremarkable. LIVER/BILIARY: Mild hepatic steatosis. Biliary tree normal in caliber. GALLBLADDER: Normal. SPLEEN: Normal. PANCREAS: Normal. ADRENAL GLANDS: Normal. KIDNEYS/URINARY TRACT: Scattered areas of renal scarring may be from prior obstruction or infection. Ureters and bladder appear normal. GI: Stomach and small bowel appear normal. Colon and appendix unremarkable. OTHER ABDOMINAL/PELVIS: Major vascular structures are grossly patent and normal in caliber. 4.7 cm left adnexal cyst. IUD centered in the uterus. MSK: Normal. BODY WALL: Normal. IMPRESSION: 1. Small to moderate right pleural effusion with passive atelectasis similar to the previous day. 2. 4.7 cm left adnexal cyst could be symptomatic. No hemorrhage or other complexity is seen. THIS IS AN ELECTRONICALLY VERIFIED FINAL REPORT 06/20/2025 2:42 AM - Electronically signed by Bunny Jay M.D. [place]: [place] Report ID: [id number] Reading Location: [id number] Procedure Note Bunny Jay MD - 06/20/2025 EXAM DESCRIPTION: CT CHEST PE (CTA) ABDOMEN PELVIS W CONTRAST REASON FOR STUDY: pain co of R flank pain, per ems pt was seen at OSH on 06/05 prescribed steroidand muscle relaxer without relief, pt denies any injury, pt states she has ahx of gallstones, pt states hot showers help the pain TECHNIQUE: CT angiogram of the chest with routine abdomen and pelvisperformed with intravenous and without oral contrast using helical scanningtechnique with dynamic intravenous contrast injection. Reconstructed coronal and sagittal MPR images reviewed. All images stored on PACS. 3D MIP images ofthe chest rendered on scanning unit and reviewed at time of interpretation. Automated exposure control was used as a dose optimization technique forthis examination. CONTRAST TYPE/DOSE: 75mL of IOVERSOL 350 MG IODINE/ML INTRAVENOUS SYRINGE injected via intravenous COMPARISON: 06/19/2025 FINDINGS: CHEST VASCULAR: Bolus timing is adequate and no filling defect is seen inthe pulmonary arterial tree. Systemic arterial structures are partially opacified and reveal no acute abnormality. MEDIASTINUM/GONZALEZ: Heart size normal. No coronary artery calcification.No enlarged lymph node. Thoracic inlet unremarkable. LUNGS: Small to moderate right pleural effusion with passive atelectasis similar to the prior. Left lung mostly clear. Trachea and major airways patent. CHEST MUSCULOSKELETAL: Unremarkable. CHEST WALL: Unremarkable. LIVER/BILIARY: Mild hepatic steatosis. Biliary tree normal in caliber. GALLBLADDER: Normal. SPLEEN: Normal. PANCREAS: Normal. ADRENAL GLANDS: Normal. KIDNEYS/URINARY TRACT: Scattered areas of renal scarring may be fromprior obstruction or infection. Ureters and bladder appear normal. GI: Stomach and small bowel appear normal. Colon and appendixunremarkable. OTHER ABDOMINAL/PELVIS: Major vascular structures are grossly patent and normal in caliber. 4.7 cm left adnexal cyst. IUD centered in the uterus. MSK: Normal. BODY WALL: Normal. IMPRESSION: 1. Small to moderate right pleural effusion with passive atelectasissimilar to the previous day. 2. 4.7 cm left adnexal cyst could be symptomatic. No hemorrhage orother complexity is seen. THIS IS AN ELECTRONICALLY VERIFIED FINAL REPORT 06/20/2025 2:42 AM - Electronically signed by Bunny Jay M.D. [place]: [place] Report ID: [id number] Reading Location: [place] [address] Sherry Jorgensen MD IMG CT PROCEDURES Final R esult * CT Chest WO Contrast (06/19/2025 11:52 PM CDT) Anatomical Region Laterality Modality Body N/A Computed Tomogra phy 06/20/2025 12:1 5 AM CDT Narrative 06/20/2025 12:23 AM CDT EXAM DESCRIPTION: CT CHEST WO CONTRAST REASON FOR STUDY: Chest wall pain, nontraumatic, infection or inflammation suspected, xray done co of R flank pain, per ems pt was seen at OSH on 06/05 prescribed steroid and muscle relaxer without relief, pt denies any injury, pt states she has a hx of gallstones, pt states hot showers help the pain TECHNIQUE: CT scan of the chest performed without intravenous contrast using helical scanning technique. Reconstructed coronal and sagittal MPR images reviewed. All images stored on PACS. Automated exposure control was used as a dose optimization technique for this examination. COMPARISON: Chest x-ray 06/19/2025 FINDINGS: The sensitivity for detection of solid visceral lesions is diminished without the use of intravenous contrast. LUNGS: Minor right pleural effusion is seen dependently. There is some patchy atelectasis of the right base. The left lung is better preserved. PLEURA: No pneumothorax is seen. MEDIASTINUM/GONZALEZ: No identified masses or abnormal nodes. HEART: Heart size is normal with no pericardial effusion. CORONARY ARTERY CALCIFICATION: None VASCULATURE: No thoracic aortic aneurysm. AXILLA: No adenopathy. CHEST WALL: No masses. No subcutaneous air. HARDWARE/LINES/TUBES: None. UPPER ABDOMEN: No significant abnormality. MUSCULOSKELETAL: No significant abnormality. OTHER: No other significant abnormality. IMPRESSION: Minor right pleural effusion with some patchy atelectasis of the right base. THIS IS AN ELECTRONICALLY VERIFIED FINAL REPORT 06/20/2025 12:23 AM - Electronically signed by Terell Radford M.D. KH: RILEY Report ID: [id number] Reading Location: [id number] Procedure Note Terell Radford MD - 06/20/2025 EXAM DESCRIPTION: CT CHEST WO CONTRAST REASON FOR STUDY: Chest wall pain, nontraumatic, infection orinflammation suspected, xray done co of R flank pain, per ems pt was seen at OSH on 06/05 prescribed steroidand muscle relaxer without relief, pt denies any injury, pt states she has ahx of gallstones, pt states hot showers help the pain TECHNIQUE: CT scan of the chest performed without intravenous contrastusing helical scanning technique. Reconstructed coronal and sagittal MPR images reviewed. All images stored on PACS. Automated exposure control was usedas a dose optimization technique for this examination. COMPARISON: Chest x-ray 06/19/2025 FINDINGS: The sensitivity for detection of solid visceral lesions is diminishedwithout the use of intravenous contrast. LUNGS: Minor right pleural effusion is seen dependently. There is some patchy atelectasis of the right base. The left lung is better preserved. PLEURA: No pneumothorax is seen. MEDIASTINUM/GONZALEZ: No identified masses or abnormal nodes. HEART: Heart size is normal with no pericardial effusion. CORONARY ARTERY CALCIFICATION: None VASCULATURE: No thoracic aortic aneurysm. AXILLA: No adenopathy. CHEST WALL: No masses. No subcutaneous air. HARDWARE/LINES/TUBES: None. UPPER ABDOMEN: No significant abnormality. MUSCULOSKELETAL: No significant abnormality. OTHER: No other significant abnormality. IMPRESSION: Minor right pleural effusion with some patchy atelectasis of the rightbase. THIS IS AN ELECTRONICALLY VERIFIED FINAL REPORT 06/20/2025 12:23 AM - Electronically signed by Terell Radford M.D. KH: RILEY Report ID: [id number] Reading Location: [id number] Berto Oneill MD IMG CT PROCEDURES Final Resu lt * Blood culture Blood Peripheral (06/19/2025 11:36 PM CDT) Report Final Report: No growth Comment:Testing performed by : [facility], [address] [facility], [place]., [address] Blood (Peripheral) 06/19/2025 11:36 PM CDT 06/20/2025 2:02 AM CDT Narrative [facility] ([place]) - 06/24/2025 7:00 AM CDT From a different site than #1. Draw Blood cultures before administration of Antibiotics Collection->Peripheral 1. Blood cultures are incubated for 4 days on a continuously monitored blood culture system. The first report of a negative culture is issued within 24 hours of receipt of the specimen in the laboratory. 2. Positive culture results are reported as soon as they are detected. 3. The most important factor for detection of microbes in the setting of bloodstream infection is the volume of blood submitted for culture. Failure to collect an optimal blood volume can result in false negative blood cultures. 4. For pediatric patients, the recommended blood volume to collect follows a weight based strategy. See the electronic test catalog for collection instructions. 5. For positive blood cultures, a rapid molecular test may be performed for organism identification using the meme ePlex blood culture identification panel for gram positive (BCID-GP) and gram negative (BCID-GN) organisms. This nucleic acid amplification test detects microbial DNA in positive blood culture broth. This assay has been cleared by the [place] Food and Drug Administration and its performance characteristics have been verified by the [facility]biology Laboratory. For questions about this culture, contact the Microbiology Laboratory at [phone]. Interpretive data was last revised on 24. Berto Oneill MD LAB MICROBIOLOGY - GENERAL O RDERABLES Final Result [facility]) 1 [facility] Department [place] [address] * Blood culture Blood Peripheral (06/19/2025 11:36 PM CDT) Report Final Report: No growth Comment:Testing performed by : [facility], [address] [facility], [place]., [address] Blood (Peripheral) 06/19/2025 11:36 PM CDT 06/20/2025 2:02 AM CDT Narrative [facility] ([place]) - 06/24/2025 7:00 AM CDT Draw Blood cultures before administration of Antibiotics Collection->Peripheral 1. Blood cultures are incubated for 4 days on a continuously monitored blood culture system. The first report of a negative culture is issued within 24 hours of receipt of the specimen in the laboratory. 2. Positive culture results are reported as soon as they are detected. 3. The most important factor for detection of microbes in the setting of bloodstream infection is the volume of blood submitted for culture. Failure to collect an optimal blood volume can result in false negative blood cultures. 4. For pediatric patients, the recommended blood volume to collect follows a weight based strategy. See the electronic test catalog for collection instructions. 5. For positive blood cultures, a rapid molecular test may be performed for organism identification using the meme ePlex blood culture identification panel for gram positive (BCID-GP) and gram negative (BCID-GN) organisms. This nucleic acid amplification test detects microbial DNA in positive blood culture broth. This assay has been cleared by the [place] Food and Drug Administration and its performance characteristics have been verified by the [facility]biology Laboratory. For questions about this culture, contact the Microbiology Laboratory at [phone]. Interpretive data was last revised on 24. Berto Oneill MD LAB MICROBIOLOGY - GENERAL O RDERABLES Final Result [facility] [place] [facility] Department [place] [address] * XR Chest Pa Lateral 2 Vw (06/19/2025 10:48 PM CDT) Anatomical Region Laterality Modality Body, Chest N/A Computed Radiogr aphy 06/19/2025 11:0 9 PM CDT Narrative 06/19/2025 11:10 PM CDT EXAM DESCRIPTION: XR CHEST PA LATERAL 2 VIEWS REASON FOR STUDY: pain co of R flank pain TECHNIQUE: 2 radiographic view(s) of the chest. COMPARISON: None FINDINGS: LUNGS: [id number]-[id number] size pleural effusion is suspected at the right lung base. Mild diffuse underlying chronic lung changes are suspected. The left lung otherwise appears clear. HEART/MEDIASTINUM: Cardiac silhouette normal in size. Mediastinal and hilar contours appear normal. LINES/TUBES: None. BONES: No acute osseous abnormality. IMPRESSION: Small to moderate size right pleural effusion is suspected. THIS IS AN ELECTRONICALLY VERIFIED FINAL REPORT 06/19/2025 11:10 PM - Electronically signed by Terell LIN: RILEY Report ID: [id number] Reading Location: [place] [address] Procedure Note Terell Radford MD - 06/19/2025 EXAM DESCRIPTION: XR CHEST PA LATERAL 2 VIEWS REASON FOR STUDY: pain co of R flank pain TECHNIQUE: 2 radiographic view(s) of the chest. COMPARISON: None FINDINGS: LUNGS: Xbtsf-kr-cjcwabwq size pleural effusion is suspected at the rightlung base. Mild diffuse underlying chronic lung changes are suspected. Theleft lung otherwise appears clear. HEART/MEDIASTINUM: Cardiac silhouette normal in size. Mediastinal andhilar contours appear normal. LINES/TUBES: None. BONES: No acute osseous abnormality. IMPRESSION: Small to moderate size right pleural effusion is suspected. THIS IS AN ELECTRONICALLY VERIFIED FINAL REPORT 06/19/2025 11:10 PM - Electronically signed by Terell LIN: RILEY Report ID: [id number] Reading Location: [place] [address] Berto Oneill MD IMG XR PROCEDURES Final Resu lt * Sepsis Lactate w/ Reflex (06/19/2025 10:45 PM CDT) Sepsis Lactate 0.7 0.7 - 2.0 mmol/L Blood 06/19/2025 10:4 5 PM CDT 06/19/2025 10:48 PM CDT Berto Oneill MD LAB BLOOD ORDERABLES Final R esult [facility] ([place]) [address] [facility] [place] [address] * eGFR (06/19/2025 10:45 PM CDT) Pathologist [facility] eGFR >90 >=60 mL/min/1. 73 m2 Comment: Interpretive Data Reference Interval Normal >/= 90 mL/min/1.73m2 Mildly decreased* 60 - 89 mL/min/1.73m2 Mildly to moderately decreased 45 - 59 mL/min/1.73m2 Moderately to severely decreased 30 - 44 mL/min/1.73m2 Severely decreased 15 - 29 mL/min/1.73m2 Kidney Failure < 15 mL/min/1.73m2 *Relative to young adult level Estimated glomerular filtration rate is determined by the 2020 CKD-EPI equation recommended by the National Kidney Foundation (A Unifying Approach to GFR Estimation: Recommendations of the NKF-ASK Task Force on Reassessing the Inclusion of Race in Diagnosing Kidney Disease, JASN 2020). The CKD-EPI equation should not be used for patients with unstable renal function and has not been validated in children and those over 70. Current interpretive data was last reviewed 2021. Blood 06/19/2025 10:4 5 PM CDT 06/19/2025 10:48 PM CDT us Berto Oneill MD LAB BLOOD ORDERABLES Final R esult [facility] ([place]) [address] [facility] Department [place] [address] * (ABNORMAL) Differential, auto (06/19/2025 10:45 PM CDT) Pathologist [facility] Neutrophil abs 14.36(H) 1.50 - 6.50 K/cumm Imm gran abs 0.07 0.00 - 0.10 K/cumm [facility] ([place]) Lymphocyte abs 1.02 0.80 - 3.30 K/cumm [facility] ([place]) Monocyte abs 1.27(H) 0.20 - 0.80 K/cumm [facility] ([place]) Eosinophil abs 0.18 0.00 - 0.50 K/cumm [facility] ([place]) Basophil abs 0.11(H) 0.00 - 0.10 K/cumm [facility] ([place]) Neutrophil pct 84.4 % [facility] ([place]) Comment: Interpretive Data Percent cell count reference ranges are not reported, since discordance with absolute values may lead to misinterpretation of CBC data. Current Interpretive Data was last revised on 2017. Imm gran pct 0.4 % [facility] ([place]) Comment: Interpretive Data Percent cell count reference ranges are not reported, since discordance with absolute values may lead to misinterpretation of CBC data. Current Interpretive Data was last revised on 2017. Lymphocyte pct 6.0 % [facility] ([place]) Comment: Interpretive Data Percent cell count reference ranges are not reported, since discordance with absolute values may lead to misinterpretation of CBC data. Current Interpretive Data was last revised on 2017. Monocyte pct 7.5 % [facility] ([place]) Comment: Interpretive Data Percent cell count reference ranges are not reported, since discordance with absolute values may lead to misinterpretation of CBC data. Current Interpretive Data was last revised on 2017. Eosinophil pct 1.1 % [facility] ([place]) Comment: Interpretive Data Percent cell count reference ranges are not reported, since discordance with absolute values may lead to misinterpretation of CBC data. Current Interpretive Data was last revised on 2017. Basophil pct 0.6 % [facility] ([place]) Comment: Interpretive Data Percent cell count reference ranges are not reported, since discordance with absolute values may lead to misinterpretation of CBC data. Current Interpretive Data was last revised on 2017. Blood 06/19/2025 10:4 5 PM CDT 06/19/2025 10:48 PM CDT us Berto Oneill MD LAB BLOOD ORDERABLES Final R esult [facility] ([place]) 1 [facility] Department [place] [address] * (ABNORMAL) CBC with auto differential (06/19/2025 10:45 PM CDT) WBC 17.01(H) 3.80 - 9.90 K/cumm Hgb 10.5(L) 11.9 - 15.5 g/dL [facility] ([place]) Hct 34.2(L) 35.6 - 45.5 % [facility] ([place]) Plt 242 150 - 400 K/cumm [facility] ([place]) MPV 10.4 9.1 - 12.3 fL [facility] ([place]) RBC 4.03 3.90 - 5.20 M/cumm [facility] ([place]) MCV 84.9 81.3 - 96.4 fL [facility] ([place]) MCH 26.1(L) 27.1 - 33.3 pg [facility] ([place]) MCHC 30.7(L) 32.3 - 35.7 g/dL [facility] ([place]) RDW CV 13.6 11.1 - 14.9 % [facility] ([place]) RDW SD 42.3 35.7 - 48.1 fL [facility] ([place]) NRBC abs 0.00 0.00 - 0.01 K/cumm [facility] ([place]) Blood 06/19/2025 10:4 5 PM CDT 06/19/2025 10:48 PM CDT Berto Oneill MD LAB BLOOD ORDERABLES Final R esult Performing Organization Address City/[facility] Co de Phone Number [facility] ([place]) [address] [facility] [employer] [place] [address] * hCG, urine, qualitative (06/19/2025 10:45 PM CDT) HCG, ur Negative Negative Urine 06/19/2025 10:4 5 PM CDT 06/19/2025 10:48 PM CDT Berto Oneill MD LAB URINE ORDERABLES Final R esult Performing Organization Address City/[facility]/ZIP Co de Phone Number [facility] ([place]) [address] [facility] [employer] [place] [address] * (ABNORMAL) CRP (acute phase) (06/19/2025 10:45 PM CDT) CRP 205.0(H) <=10.0 mg/L Blood 06/19/2025 10:4 5 PM CDT 06/19/2025 10:48 PM CDT Berto Oneill MD LAB BLOOD ORDERABLES Final R esult [facility] ([place]) [address] [facility] Department [place] [address] * Comprehensive metabolic panel (06/19/2025 10:45 PM CDT) Sodium 135 135 - 145 mmol/L Potassium, pl 3.9 3.3 - 4.9 mmol/L [facility] ([place]) Chloride 100 97 - 110 mmol/L [facility] ([place]) CO2 26 22 - 32 mmol/L [facility] ([place]) Anion gap 9 2 - 15 mmol/L [facility] ([place]) BUN 17 6 - 25 mg/dL [facility] ([place]) Creatinine 0.86 0.60 - 1.10 mg/dL [facility] ([place]) Glucose 109 70 - 199 mg/dL [facility] ([place]) Comment: Interpretive Data Fasting glucose >/= 126 mg/dl is diagnostic for diabetes. Fasting is defined as no caloric intake for at least 8 hours. Fasting glucose between 100 mg/dl to 125 mg/dl is diagnostic of prediabetes. In a patient with classic symptoms of hyperglycemia or hyperglycemic crisis, a random glucose >/= 200 mg/dl is diagnostic for diabetes. In the absence of unequivocal hyperglycemia, results should be confirmed by repeat testing. The classification and Diagnosis of Diabetes Diabetes Care 2021; 46: S19-S40. Current interpretive data was last revised 2022. Calcium 9.6 8.5 - 10.3 mg/dL [facility] ([place]) Bilirubin, total 0.6 0.1 - 1.2 mg/dL [facility] ([place]) Protein, pl 7.5 6.5 - 8.5 g/dL [facility] ([place]) Albumin 3.9 3.5 - 5.0 g/dL [facility] ([place]) Alk phos 65 40 - 130 Units/L [facility] ([place]) ALT 13 7 - 45 Units/L [facility] ([place]) AST 18 10 - 45 Units/L [facility] ([place]) Blood 06/19/2025 10:4 5 PM CDT 06/19/2025 10:48 PM CDT us Berto Oneill MD LAB BLOOD ORDERABLES Final R esult Performing Organization Address [facility] Co de Phone Number [facility] ([place]) [address] [facility] Department [place] [address] * XR Outside Reference (06/05/2025 6:40 PM CDT) Narrative [facility] - 07/08/2025 1:49 PM 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 us Not In File Miscellaneous IMG XR PROCEDURES Gabriella l Result Performing Organization Address [facility] Co de Phone Number [facility] * CT Body Outside Reference (06/05/2025 11:15 AM CDT) Narrative [facility] - 07/08/2025 1:48 PM 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 us Not In File Miscellaneous IMG CT PROCEDURES Gabriella l Result Performing Organization Address [facility] Co de Phone Number [facility] from Last [address] [place] [address] [facility] Advance Directives For more information, please contact: [phone] * Full Code (Latest Code Status on File) Date Activated Date Inactivated Comments 06/20/2025 5:04 AM 06/29/2025 10:59 PM Care Teams Police Dispatcher Relationship Specialty Start Date End Date Precious Hernandez MD [address] [place] [address] PCP - General Obstetrics and Gynecology 06/03/24 Clint Cardona MD [address] [place] [address] [place] [id number] Consulting Physician Pulmonary Disease 06/29/25
== END 2025-07-15 14:44 | disposition home or self-care (01) ==
PROVIDERS: Emergency Provider Registered Nurse
DX: M25.562 Pain in left knee (principal); F17.290 Nicotine dependence, other tobacco product, uncomplicated; F41.9 Anxiety disorder, unspecified; F32.A Depression, unspecified; G10 Huntington's disease
CPT/HCPCS: 73562; 99213; G0463